=== PATIENT | female | born 1995 | race Caucasian/White ===

== ENCOUNTER 2024-05-07 09:21 | Emergency (ER) | payer OTHER, SELFPAY ==
--- NOTE | 2024-05-07 09:31 | ED_ITS ---
HPI - Female Genitourinary General Chief complaint: Nausea/Vomiting/Diarrhea Stated complaint: Urinary Problem,Diarrhea Time Seen by Provider: 05/07/24 09:47 Source: patient and RN notes reviewed Mode of arrival: ambulatory Limitations: no limitations History of Present Illness HPI Narrative: 28-year-old female presents with concern for 6 day history of diarrhea. She reports she is having some nausea and has vomited about 3 times in the past week. She denies fevers. She denies abdominal pain. She reports she has been having difficulty passing urine and has to ?force? urine out. She denies dysuria, frequency, urgency. She reports she is urinating and normal volume. She reports she is drinking fluids and is eating chicken soup. MD elicited complaint: UTI and other (Diarrhea) Related Data Allergies Allergy/AdvReac Type Severity Reaction Status Date / Time ketorolac (From Toradol) Allergy Unknown Unknown Verified 05/07/24 09:34 Review of Systems Review of Systems: CONSTITUTIONAL: Denies malaise, chills, sweats, or fever. ENT: Denies rhinorrhea, congestion, sinus pain, otalgia or sore throat. CARDIOVASCULAR: Denies chest pain, palpitations, or edema. RESPIRATORY: Denies cough or dyspnea. GASTROINTESTINAL: Denies abdominal pain, vomiting, bloody, or mucous stools. She reports nausea and diarrhea GENITOURINARY: Denies dysuria, frequency, urgency, or hematuria. Reports difficulty passing urine MUSCULOSKELETAL: Denies myalgia. Reports low back pain NEUROLOGIC: Denies headache. All systems reviewed & are unremarkable except as noted in HPI and below PMFSH Comments At time of signature, agree with nursing past medical, surgical, social and family history. There is no relevant family history pertinent to the presenting complaint Exam Narrative: GENERAL: Well-appearing, well-nourished, and in no acute distress. HEAD: Normocephalic, atraumatic. EYES: PERRLA, conjunctivae clear, and EOMI. ENT: Nares clear, turbinates pink, no rhinorrhea or epistaxis. Mucous membranes moist. Oropharynx without edema, erythema, or lesions. Tonsils not enlarged and without exudate. NECK: Supple. No lymphadenopathy CHEST: Speaks in full sentences. No respiratory distress. HEART: Regular rate and rhythm. SKIN: Warm, dry, no rash. NEURO: Alert and oriented x3. PSYCH: Normal mood and affect Course Course Emergency Course: Patient is aware of diagnosis, understands and agrees to treatment plan. Anticipatory guidance given. Patient agrees to follow-up as directed and is aware of reasons to seek care at the emergency department. Portions of this record may have been created with voice recognition software Level of Care: Express Care Visit Vital Signs Vital signs: Reviewed. MDM - Female Genitourinary MDM Narrative Medical decision making narrative: I evaluated this patient in the express care. History is obtained from patient who is an independent historian and physical exam was performed.? Available medical records were reviewed. ? Exam findings and relevant testing show no acute concerns or changes; patient is non-toxic appearing and is in no distress. ? Differential diagnosis and treatment plan were discussed with the patient. Patient agrees with discussion and after shared medical decision making agrees with plan of care. All questions were answered to the patient's satisfaction. Patient is appropriate for outpatient treatment and follow-up. Critical Care Time Critical Care Time Critical Care Time: No Discharge Plan Discharge Clinical Impression: Diarrhea Patient Disposition: Home, Self-Care Condition: Stable Instructions: Acute Diarrhea (ED) Additional Instructions: We will send a urine culture to the lab; if the culture identifies an organism that requires antibiotic, you will receive a phone call from an urgent care staf f member and an appropriate antibiotic will be prescribed. Take Zofran as needed for nausea to lie did tolerate food and fluids Take probiotic as directed Increase water intake. Take ibuprofen as needed for pain and inflammation Follow-up with your primary care provider if symptoms do not improve. Seek ER visit if condition worsens and does not allow you to tolerate fluids, you have high fever, nausea, vomiting and severe back pain. Patient Language: Polish Prescriptions: New ondansetron 4 mg tablet,disintegrating 4 mg PO Q8H PRN (Reason: nausea and vomiting) Qty: 10 0RF Culturelle 10 billion cell capsule 1 cap PO DAILY Qty: 30 0RF Follow-up/Referrals: Claudio,Mikey Treviño MD [Primary Care Provider] - Stand Alone Forms: Work/School Release IP Time of Disposition: 09:55
[2024-05-07 09:33] VITALS: BP 133/78; PULSE 90; RESP 18; TEMP 36.4; O2SAT 100
[2024-05-07 09:42] LABS: EDUAAPPEAR Cloudy; EDUABILI Negative (Negative); EDUABLOOD Negative (Negative); EDUACOLOR1 Yellow; EDUAGLUCOSE Negative (Negative); EDUAKETONE Negative (Negative); EDUALEUKO Negative (Negative); EDUANITRATE Negative (Negative); EDUAPROTEIN Trace (Negative); EDUASPGRAVITY 1.025; EDUAUROBILI 0.2
== END 2024-05-07 10:01 | disposition home or self-care (01) ==
PROVIDERS: Emergency Provider Nurse Practitioner; PCP Family Medicine
DX: R19.7 Diarrhea, unspecified (principal)
CPT/HCPCS: 81003; 87086; 99203; G0463

== ENCOUNTER 2024-07-27 11:00 | Emergency (ER) | payer OTHER, SELFPAY ==
--- NOTE | ~2024-07-27 | XR_ITS ---
EXAMINATION: XR chest 2V DATE: 07/27/2024 11:39 INDICATION: Burning in chest TECHNIQUE: frontal and lateral views of the chest were obtained. COMPARISON: None FINDINGS: The lungs are clear with no focal airspace opacities, pulmonary edema, pleural effusion or pneumothor ax. The cardiomediastinal silhouette is normal. Mild thoracic kyphosis with mild anterior wedging of a few mid thoracic vertebral bodies and mild spondylosis. IMPRESSION: 1. No acute cardiopulmonary disease. Reviewed, dictated and finalized at location A.
--- OUTSIDE RECORDS SUMMARY | 2024-07-27 11:04 | XMS_ITS | Encounter Summary ---
Author Organization [facility] Healthcare Address [address] [place] [address] Care Team Providers Care Dobby Loom Chain Pegger Name Role Phone Mikey Snyder MD Primary Care Provider [phone] Reason for Visit * Auth/Cert (Routine) Specialty Diagnoses / Procedures Referred By Contac t Referred To Contact Diagnoses Dysphagia, unspecified type Dysphagia, unspecified type [R13.10] Procedures IA ESOPHAGOGASTRODUODENOSCOPY TRANSORAL DIAGNOSTIC ESOPHAGOGASTRODUODENOSCOPY Referral ID Status Reason Start Date Expiration Date Visits Re quested Visits Authorized [id number] 1 1 Encounter Details Date Type Department Care Team (Late st Contact Info) Description 03/08/2024 Hospital Encounter [facility] [address] [place] [address] Berto Benitez MD [address] [place] [address] [address] Social History Tobacco Use Types Packs/Day Years Used Date Smoking Tobacco: Never Smokeless Tobacco: Never Alcohol Use Standard Drinks/Week Comments No 0 (1 standard drink = 0.6 oz pur e alcohol) AUDIT-C Answer Date Recorded Q1: How often do you have a drink containing alc ohol? Never 10/27/2023 Average Number of Drinks Not on file 024 Frequency of Binge Drinking Not on file 08/2023 Personal Safety Answer Date Recorded Have you ever been in or are you currently in a harmful physical or emotional relationship or is someone making you feel afraid or unsafe? Denies 04/01/2024 Comments No Sex and Gender Information Value Date Recorded Sex Assigned at Not on file Legal Sex Female 6:11 PM SPECIALTY SALES REPRESENTATIVE Gender Identity Not on file Sexual Orientation Not on file documented as of this encounter Plan of Treatment Not on file documented as of this encounter Visit Diagnoses Diagnosis Dysphagia- Primary documented in this encounter Admitting Diagnoses Diagnosis Dysphagia documented in this encounter Care Teams Dobby Loom Chain Pegger Relationship Specialty Start Date End Date Mikey Snyder MD PCP - General 08/18/20 documented as of this encounter
--- OUTSIDE RECORDS SUMMARY | 2024-07-27 11:04 | XMS_ITS | Referral Summary ---
Author Organization [facility] Address [address] [place] [address] Care Team Providers Care Dance Coach Name Role Phone Mikey Snyder MD Primary Care Provider [phone] Allergies Active Allergy Reactions Criticality Noted Date Comments Amoxicillin Vomiting Low 02/06/2017 Pt states she is no longer allergic. 11/15/22 Aspirin Other (See comments) Medium 11/14/2015 Abdominal swelling Silva Nausea Only 07/16/2017 Pt states she is no longer allergic. 11/15/22 Codeine Vomiting Low 02/06/2017 Divalproex Seizures High 07/31/2017 Ibuprofen Swelling Medium 01/22/2018 Raspberry Anaphylaxis High 07/09/2023 Ketorolac Vomiting Low 03/08/2018 Tramadol Hives Medium 11/14/2015 Medications albuterol HFA (Ventolin HFA) 90 mcg/actuation inhalerIndications :Upper respiratory tract infection, unspecified type Inhale 2 puffs every 4 (four) hours as needed for wheezing or shortness of breath 8 g 5 12/17/19 20 Active busPIRone (BUSPAR) 5 mg tabletIndications: Generalized Anxiety Disorder Take 1 tablet (5 mg total) by mouth as needed Active levonorgestreL (MIRENA) IUD 07/20/19 22 Active cyclobenzaprine (FLEXERIL) 10 mg tablet Take 1 tablet (10 mg total) by mouth 2 (two) times a day as needed for muscle spasms 15 tablet 11/06/19 22 Active Additional Information Patient not taking.Reported on 06/20/2022 clindamycin (CLEOCIN) 300 mg capsule Take 1 capsule (300 mg total) by mouth 3 (three) times a day 30 capsule 01/17/20 22 Active Additional Information Patient not taking.Reported on 06/20/2022 ondansetron (ZOFRAN) 4 mg tablet Take 1 tablet (4 mg total) by mouth every 6 (six) hours 12 tablet 05/08/19 23 Active Additional Information Patient not taking.Reported on 06/20/2022 dicyclomine (BENTYL) 20 mg tablet Take 1 tablet (20 mg total) by mouth 2 (two) times a day 20 tablet 05/08/19 23 Active Additional Information Patient not taking.Reported on 06/20/2022 ergocalciferol (VITAMIN D) 50,000 unit capsule Take 50,000 Units by mouth 06/07/19 23 Active ondansetron ODT (ZOFRAN-ODT) 4 mg disintegrating tablet Take 1 tablet (4 mg total) by mouth every 8 (eight) hours as needed for nausea or vomiting 20 tablet 10/25/19 23 Active Additional Information Patient not taking.Reported on 10/27/2023 lidocaine (LIDODERM) 5 % Place 1 patch on the skin daily for 14 days Remove & discard patch within 12 hours or as directed by MD. 14 patch 02/15/20 Active methocarbamoL (ROBAXIN) 500 mg tablet Take 1 tablet (500 mg total) by mouth 2 (two) times a day 20 tablet 02/15/20 Active Additional Information Patient not taking.Reported on 10/27/2023 HYDROcodone-acetam inophen (NORCO) 5-325 mg per tabletIndications: Pain Take 1 tablet by mouth every 6 (six) hours as needed for pain 12 tablet 07/09/19 24 Active Additional Information Patient not taking.Reported on 10/27/2023 cephalexin (KEFLEX) 500 mg capsule Take 1 capsule (500 mg total) by mouth 3 (three) times a day 21 capsule 07/09/19 24 Active Additional Information Patient not taking.Reported on 10/27/2023 budesonide (PULMICORT) 1 mg/2 mL nebulizer solutionIndication s:Eosinophilic Esophagitis Mix the content of 1 ampul with 10 g of Splenda and swallow. Do not eat or drink for 30 minutes afterwards. 60 mL 3 11/24/19 24 Active omeprazole (PriLOSEC) 40 mg capsule Take 1 capsule (40 mg total) by mouth daily 90 capsule 1 11/24/19 24 Active cyclobenzaprine (FLEXERIL) 10 mg tablet Take 1 tablet (10 mg total) by mouth 2 (two) times a day as needed for muscle spasms 20 tablet 04/01/20 24 Active HYDROcodone-acetam inophen (NORCO) 5-325 mg per tabletIndications: Pain Take 1 tablet by mouth every 6 (six) hours as needed for pain for up to 10 doses 10 tablet 04/01/20 24 Active ondansetron (ZOFRAN) 4 mg tablet Take 1 tablet (4 mg total) by mouth every 4 (four) hours as needed for nausea or vomiting 15 tablet 04/01/20 24 Active Active Problems Problem Noted Date Diagnosed Date Epigastric burning sensation 10/28/2023 Assessment & Plan (10/28/2023 3:04 PM CDT): Epigastric burning and fluttering sensation, worse with fasting Went to ED two weeks ago was told from GERD Been on pantoprazole daily for 2 weeks with no relief but tolerating without side effects Takes NSAIDs twice a month Mother and father with GERD No smoking, very occasional ETOH use, previous heavy drinker from -. Last EGD from 10/2022 showed findings suggestive of EoE, did not tolerated PPI due to migraine and started on fluticasone, tried for 3-4 months with no relief. Still having persistent solid food dysphagia, no food regurgitation, nausea or vomiting Recent CT from 09/2023 showed hepatic steatosis and mild hepatomegaly Plan Increase pantoprazole to 40 mg BID, take 30 minute before breakfast and dinner Schedule EGD to assess for esophagitis, PUD, gastritis Dysphagia 10/27/2023 Assessment & Plan (10/28/2023 3:02 PM CDT): Last EGD from 10/2022 showed findings suggestive of EoE, did not tolerated PPI due to migraine and started on fluticasone, tried for 3-4 months with no relief. Still having persistent solid food dysphagia, no food regurgitation, nausea or vomiting Plan Will schedule EGD with bx and dilation Increase pantoprazole to 40 mg BID, take 30 minute before breakfast and dinner Diarrhea 10/27/2023 Assessment & Plan (10/28/2023 3:02 PM CDT): Has non-bloody watery loose stool with urgency following eating, worsening over the last 5 years, tried cutting out greasy fatty foods with some relief, no nocturnal symptoms No hematochezia or melena Lost about 10 lbs over the last 2 weeks mostly with diet changes No prior colonoscopy or diarrhea work up Recent CT from 09/2023 showed hepatic steatosis and mild hepatomegaly Plan Clinically sounds like IBS-D Schedule colonoscopy given weight loss and chronically worsening symptoms, depending on findings will decide if additional diarrhea work up indicated. Esophageal candidiasis 08/16/2022 Otorrhea of left ear 02/19/2021 Assessment & Plan (02/19/2021 2:16 PM CDT): Tobradex to the Left ear 7 drops twice daily for 14 days Avoid ear cleaning techniques Avoid water to ears Referral to Otology for Chronic tympanomastoiditis bilaterally How to Use Ear Drops discussed and Handout provided Chronic tympanomastoiditis of both sides 021 Assessment & Plan (02/19/2021 2:17 PM CDT): Referral to Otology for Chronic tympanomastoiditis bilaterally Acute viral syndrome 12/04/2020 Migraine without status migrainosus, not intract able 09/15/2020 Assessment & Plan (09/15/2020 1:43 PM CDT): Referral to Neurology for Migraines Sprain of deltoid ligament of left ankle 021 Foot sprain, left, initial encounter 07/10/2020 Otorrhea of right ear 01/30/2020 Assessment & Plan (09/15/2020 1:42 PM CDT): CT Temporal Bone - call with results Avoid ear cleaning techniques Avoid water to ears Assessment & Plan (09/01/2020 8:46 AM CDT): Increase Ciprodex to 10 drops into the Right ear twice daily Stop Augmentin and start Doxycycline Follow up in two weeks Consider CT Temporal bone once drainage had improved Tubes placed in January 2020 Consider ear culture and switch to Tobradex Assessment & Plan (02/13/2020 2:44 PM CDT): Finish remaining bottle of ear drops in both ears Consider Tobramycin drops Avoid ear cleaning techniques Avoid water to ears Cetirizine (Zyrtec) 10 mg daily for itching Follow up in 6 months, earlier with ear drainage Assessment & Plan (01/30/2020 9:56 AM CDT): Ciprofloxacin ear drops 7 drops into each ear twice daily for 7 days Avoid ear cleaning techniques Avoid water to ears How to Use Ear Drops discussed and Handout provided Chronic otitis media of both ears with effusion 01/08/2020 Assessment & Plan (01/08/2020 4:06 PM CDT): Bilateral myringotomy with T-tube placement in the OR Risks and complications discussed including anesthesia, bleeding, infection, hearing loss, ear tubes may fall out early, fall inwards, stay in longer than a few years, get clogged, fall out and leave a hole in the ear drum that would need to be patched, drain clear fluid. Bilateral hearing loss 01/08/2020 Assessment & Plan (01/08/2020 4:06 PM CDT): Bilateral myringotomy with T-tube placement in the OR Risks and complications discussed including anesthesia, bleeding, infection, hearing loss, ear tubes may fall out early, fall inwards, stay in longer than a few years, get clogged, fall out and leave a hole in the ear drum that would need to be patched, drain clear fluid. Chronic otitis media with effusion, bilateral Overview (01/08/2020): Added automatically from request for surgery [id number] Assessment & Plan (01/29/2020 3:56 PM CDT): Ciprofloxacin ear drops 7 drops into each ear twice daily for 7 days Ear drops discussed and Handout provided Acute right otitis media 03/20/2019 Acute serous otitis media of left ear 03/20/2019 Acute maxillary sinusitis 03/20/2019 Preeclampsia in period 08/10/2017 Immunizations Immunization Administration Dates Next Due Influenza, Trivalent, Preservative Free, Intramu scular 04/01/2024 MMR 08/04/2017 Social History Tobacco Use Types Packs/Day Years Used Date Smoking Tobacco: Never Smokeless Tobacco: Never Tobacco Cessation:Counseling Given: Not Answered Alcohol Use Standard Drinks/Week Comments No 0 [...] on file Legal Sex Female 6:11 PM AGRONOMIST Gender Identity Not on file Sexual Orientation Not on file Last Filed Vital Signs Vital Sign Reading Time Taken Comments Blood Pressure 135/83 04/01/2024 9:02 AM AGRONOMIST Pulse 81 04/01/2024 9:02 AM AGRONOMIST Temperature 37 C (98.6 F) 04/01/2024 9:02 AM AGRONOMIST Respiratory Rate 16 04/01/2024 9:02 AM AGRONOMIST Oxygen Saturation 100% 04/01/2024 9:02 AM AGRONOMIST Inhaled Oxygen Concentration - - Weight 117.9 kg (260 lb) 04/01/2024 9:02 AM AGRONOMIST Height 157.5 cm (5' 2 ) 04/01/2024 9:02 AM AGRONOMIST Body Mass Index 47.55 04/01/2024 9:02 AM AGRONOMIST Plan of Treatment Not on file Medical Devices Implanted Type Area Collaborative Teacher Device Identifier Shelf Expiration Date Model / Serial / Lot [employer] [id number] 1.32mm 4.8mm Modify Ear T Tube Ventilation Ultrasil Sterile Blue - [id number] Implanted:Qty: 1 on 01/23/2020 by Johanna Almaguer DO at [facility] Bilateral: Tympanic Membrane [employer] 03/10/2029 [id number] / / [id number] Insurance [facility] Advance Directives For more information, please contact: [phone] * Full Code (Latest Code Status on File) Date Activated Date Inactivated Comments 11/24/2023 11:57 AM 11/24/2023 6:47 PM * Full Code Date Activated Date Inactivated Comments 11/24/2023 11:57 AM 11/24/2023 11:57 AM * Full Code Date Activated Date Inactivated Comments 11/16/2022 8:07 AM 11/16/2022 3:29 PM * Full Code Date Activated Date Inactivated Comments 11/16/2022 8:07 AM 11/16/2022 8:07 AM * Full Code Date Activated Date Inactivated Comments 08/10/2022 11:32 AM 08/10/2022 5:23 PM Care Teams Dance Coach Relationship Specialty Start Date End Date Mikey Snyder MD PCP - General 08/18/20
--- OUTSIDE RECORDS SUMMARY | 2024-07-27 11:04 | XMS_ITS | Clinical Summary ---
Author Organization [facility] Address [address] [place] [address] Care Team Providers Care Senior Field Service Engineer Name Role Phone Mikey Snyder MD Primary Care Provider [phone] Allergies Active Allergy Reactions Criticality Noted Date [...] (01/08/2020): Added automatically from request for surgery [id number] Assessment & Plan (01/29/2020 3:56 PM CDT): Ciprofloxacin ear drops 7 drops into each ear twice daily for 7 days Ear drops discussed and Handout provided Acute right otitis media 03/20/2019 Acute serous otitis media of left ear 03/20/2019 Acute maxillary sinusitis 03/20/2019 Preeclampsia in period 08/10/2017 Immunizations Immunization Administration Dates Next Due Influenza, Trivalent, Preservative Free, Intramu scular 04/01/2024 MMR 08/04/2017 Surgical History Surgery Date Site/Laterality Comments TONSILLECTOMY AND ADENOIDECTOMY 04/24/1998 - 04/23/1999 Bilateral MYRINGOTOMY W/ TUBES 04/24/1998 - 04/23/1999 Pt. states shes had myringotomy tubes throughout her life. Her most recent procedure was in 2019. Medical History Medical History Date Comments Depression Migraine Polycystic ovary syndrome Urinary tract infection Migraine 01/11/2017 Asthma Migraine Migraine Anxiety GERD (gastroesophageal reflux disease) Seizures (HCC) last seizure 6 m o ago Hypertension Dysphagia Family History Medical History Relation Name Comments Cancer Father Hypertension Father Epilepsy Mother Blood Clot Other Cancer Other Heart disease Other Kidney disease Other Seizures Other Stroke Other Relation Name Status Comments Father Mother Alive Other Social History Tobacco Use Types Packs/Day Years [...] on file Legal Sex Female 6:11 PM COOKIE BREAKER Gender Identity Not on file Sexual Orientation Not on file Obstetrics History Para Term AB IAB SAB Ectopic Multiple Livin g Live Births 4 1 1 2 2 0 1 1 Date Outcome GA Total Labor Labor/2nd/3rd Weight Sex Type Anes PTL Bonnie A1 A5 Name Clin 2010 SAB 2014 SAB 2017 Term 39w 0d 14h 09m 13h 04m/0h 52m/0h 13m 3.887 kg (8 lb 9.1 oz) M Vag-S pont Epidur al N Livin g 2 5 [facility]KINS Sonia Marie, MD Complications: Renata lewis Hypertension Delivery Location:This Fac[facility] ([facility]) Last Filed Vital Signs Vital Sign Reading Time Taken Comments Blood Pressure 135/83 04/01/2024 9:02 AM COOKIE BREAKER Pulse 81 04/01/2024 9:02 AM COOKIE BREAKER Temperature 37 C (98.6 F) 04/01/2024 9:02 AM COOKIE BREAKER Respiratory Rate 16 04/01/2024 9:02 AM COOKIE BREAKER Oxygen Saturation 100% 04/01/2024 9:02 AM COOKIE BREAKER Inhaled Oxygen Concentration - - Weight 117.9 kg (260 lb) 04/01/2024 9:02 AM COOKIE BREAKER Height 157.5 cm (5' 2 ) 04/01/2024 9:02 AM COOKIE BREAKER Body Mass Index 47.55 04/01/2024 9:02 AM COOKIE BREAKER Plan of Treatment Health Maintenance Due Date Last Done Comments Cervical Cancer Screening 1993 Depression Screening 1993 Hepatitis C Screening 1993 Varicella Vaccines (2 of 2 - 2-dose childhood series) 12/21/1998 09/28/1998 Regular Well Visit/Exam 18-64 10/18/2011 Pneumococcal vaccine <65 (2 of 2 - PCV) 09/02/2015 09/01/2014 DTaP/Tdap/Td Vaccine (8 - Td or Tdap) 05/10/2027 05/10/2017, 06/16/2009, 01/28/1998, Additional history exists Hepatitis B Screening Completed 08/16/1994 , 1993, 1993 HPV Vaccines Completed 01/11/2010, 07/24, 06/16/2009 Influenza Vaccine Completed 04/01/2024, , 03/01/2019, Additional history exists Medical Devices Implanted Type Area Bicycle Service Technician Device Identifier Shelf Expiration Date Model / Serial / Lot [employer] [id number] 1.32mm 4.8mm Modify Ear T Tube Ventilation Ultrasil Sterile Blue - [id number] Implanted:Qty: 1 on 01/23/2020 by Johanna Almaguer DO at [facility] Bilateral: Tympanic Membrane [employer] 03/10/2029 [id number] / / [id number] Insurance [facility] Advance Directives For more information, please contact: [phone] * Full Code (Latest Code Status on [...] 11:32 AM 08/10/2022 5:23 PM Care Teams Senior Field Service Engineer Relationship Specialty Start Date End Date Mikey Snyder MD PCP - General 08/18/20
[2024-07-27 11:10] VITALS: BP 128/67; PULSE 74; RESP 20; TEMP 36.6; O2SAT 99
--- NOTE | 2024-07-27 11:28 | ED.GENADULT ---
HPI - General Adult General Chief complaint: Upper Respiratory Infection Stated complaint: Swollen Throat, Hurts to Breathe Source: patient Mode of arrival: ambulatory Limitations: no limitations History of Present Illness HPI narrative: Patient presents for evaluation of throat tightness. Symptom onset yesterday. She denies sore throat per se. She feels some pressure in her ears. Today she woke from sleep with a burning sensation in her chest. She has an occasional cough. Denies shortness of breath. She reports nausea without vomiting. One of her family members had influenza A a few weeks ago. Related Data Allergies Allergy/AdvReac Type Severity Reaction Status Date / Time aspirin Allergy Unknown Unknown Verified 07/27/24 11:13 codeine Allergy Unknown Unknown Verified 07/27/24 11:13 ketorolac (From Toradol) Allergy Unknown Unknown Verified 05/07/24 09:34 Review of Systems Review of Systems: CONSTITUTIONAL: Denies fever, chills, or sweats. EYES: Denies visual changes, redness, or discharge. ENT: Reports throat tightness. Denies sore throat per se Denies rhinorrhea, congestion, or otalgia. CARDIOVASCULAR: Denies chest pain, palpitations, or edema. RESPIRATORY: Reports burning sensation in the chest with mild cough. Denies shortness of breath GASTROINTESTINAL:Reports nausea without vomiting. Denies abdominal pain or diarrhea. GENITOURINARY: Denies dysuria or hematuria. SKIN: Denies rash or itching. MUSCULOSKELETAL: Denies back pain, joint pain, or myalgia. NEUROLOGIC: Denies headache, numbness, dizziness, or weakness. PSYCHIATRIC: Denies anxiety or depression. [facility] Past Medical History Medical History No pertinent past medical history Surgical History Surgical History History of tonsillectomy Family History Family History Mother Family history non-contributory Social History Social History Smoking status: Never smoker Living arrangements: with family Gender identity (if verbalized by the patient): Female Exam Narrative: GENERAL: Well-appearing, well-nourished, and in no acute distress. HEAD: Normocephalic, atraumatic. EYES: PERRLA and EOMI. ENT: Nares clear, no rhinorrhea or epistaxis. Mucous membranes moist. Oropharynx without tonsillar hypertrophy exudate or other lesions. Bilateral TMs pearly mcgee nonbulging NECK: Supple. No adenopathy or masses. No carotid bruits or JVD CHEST: Clear to auscultation. No respiratory distress. No wheezes rales or rhonchi HEART: Regular rate and rhythm. No murmur heard. Normal peripheral pulses. ABDOMEN: Soft, nontender, nondistended, normal active bowel sounds. EXTREMITIES: Normal range of motion. No edema. SKIN: Warm, dry, no rash. NEURO: No focal deficits. Alert and oriented x3. PSYCH: Normal mood and affect. Course Course Emergency Course: This is a 28-year-old female presented for evaluation of this tight sensation in her throat and burning in her chest. Strep, COVID, influenza were all negative. Chest x-ray negative. Exam consistent with acute viral syndrome. Advised on supportive care measures. Cepacol and ibuprofen should help her symptoms. Follow-up with primary provider. Go to the ER for worsening symptoms. Patient in agreement with plan of care. Level of Care: Express Care Visit Vital Signs Vital signs: Vital Signs Temperature 36.6 C 07/27/24 11:10 Pulse Rate 74 07/27/24 11:10 Respiratory Rate 20 07/27/24 11:10 Blood Pressure 128/67 07/27/24 11:10 Pulse Oximetry 99 07/27/24 11:10 Oxygen Delivery Room Air 07/27/24 11:10 Temperature 36.6 C 07/27/24 11:10 Pulse Rate 74 07/27/24 11:10 Respiratory Rate 20 07/27/24 11:10 Blood Pressure 128/67 07/27/24 11:10 Pulse Oximetry 99 07/27/24 11:10 Oxygen Delivery Room Air 07/27/24 11:10 Medical Decision Making Vital Signs Vital Signs: Vital Signs Temperature 36.6 C 07/27/24 11:10 Pulse Rate 74 07/27/24 11:10 Respiratory Rate 20 07/27/24 11:10 Blood Pressure 128/67 07/27/24 11:10 Pulse Oximetry 99 04/05/25 11:10 Oxygen Delivery Room Air 07/27/24 11:10 Temperature 36.6 C 07/27/24 11:10 Pulse Rate 74 07/27/24 11:10 Respiratory Rate 20 07/27/24 11:10 Blood Pressure 128/67 07/27/24 11:10 Pulse Oximetry 99 07/27/24 11:10 Oxygen Delivery Room Air 07/27/24 11:10 Lab Data Labs: Lab Results 07/27/24 07/27/24 Range/Units 11:14 11:30 POC Influenza A Ag Negative (Negative) POC Influenza B Ag Negative (Negative) POC SARS CoV-2 Ag Negative (Negative) POC Grp A Strep Screen Negative (Negative) Imaging Data Radiologist's impression: EXAMINATION: XR chest 2V DATE: 07/27/2024 11:39 INDICATION: Burning in chest TECHNIQUE: frontal and lateral views of the chest were obtained. COMPARISON: None FINDINGS: The lungs are clear with no focal airspace opacities, pulmonary edema, pleural effusion or pneumothorax. The cardiomediastinal silhouette is normal. Mild thoracic kyphosis with mild anterior wedging of a few mid thoracic vertebral bodies and mild spondylosis. IMPRESSION: 1. No acute cardiopulmonary disease. Discharge Plan Discharge Clinical Impression: Acute viral syndrome Patient Disposition: Home, Self-Care Condition: Stable Instructions: Antibiotic Form, Viral Syndrome (ED) Additional Instructions: IBUPROFEN AND CEPACOL LOZENGES MAY HELP YOUR SYMPTOMS Patient Language: Syriac Follow-up/Referrals: Claudio,Mikey Treviño MD [Primary Care Provider] - Stand Alone Forms: Work/School Release IP Time of Disposition: 12:16
[2024-07-27 11:29] LABS: EDSTREPNEGPOS1 Negative (Negative)
[2024-07-27 11:46] LABS: EDCOVIDSCREEN Negative (Negative); EDINFLUASCREEN Negative (Negative); EDINFLUBSCREEN Negative (Negative)
== END 2024-07-27 12:23 | disposition home or self-care (01) ==
PROVIDERS: Emergency Provider Nurse Practitioner; PCP Family Medicine
DX: B34.9 Viral infection, unspecified (principal); Z20.822 Contact with and (suspected) exposure to COVID-19
CPT/HCPCS: 71046; 87081; 87426; 87804; 87880; 99213; G0463

== ENCOUNTER 2024-09-17 12:19 | Emergency (ER) | payer OTHER, SELFPAY ==
--- NOTE | 2024-09-17 12:39 | ED.FEMALEGU ---
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 She reports she used her son's Axe body wash last night and this has caused her to have a yeast infection. Denies any vaginal odor. Has had yeast infections before and have felt similar. Denies any history of bacterial vaginosis. States that the discharge is white, thick, and causing itchiness. Has itchiness to the external vulva and to the internal vaginal area. No fevers, chills, body aches, back pain, or UTI symptoms. No concern for sexually transmitted infections. Last menstrual period was 2 weeks ago. No concern for . Related Data Allergies Allergy/AdvReac Type Severity Reaction Status Date / Time aspirin Allergy Unknown Unknown Verified 09/17/24 12:45 codeine Allergy Unknown Unknown Verified 09/17/24 12:45 ketorolac (From Toradol) Allergy Unknown Unknown Verified 09/17/24 12:45 tramadol Allergy Unknown Unknown Verified 09/17/24 12:45 Review of Systems Review of Systems: Pertinent positives per HPI. Patient denies any fever, chills, rash, headache, visual changes, dizziness, cough, runny nose, sore throat, shortness of breath, chest pain, palpitations, nausea, vomiting, diarrhea, constipation, abdominal pain, or any urinary issues. PMFSH Past Medical History Medical History No pertinent past medical history Surgical History Surgical History History of tonsillectomy Family History Family History Mother Family history non-contributory Social History Social History Smoking status: Never smoker Living arrangements: with family Gender identity (if verbalized by the patient): Female Comments At the time of my signature, I reviewed and agree with the nursing past medical, surgical, social, and family history. There is no relevant family history pertinent to the patient complaint. Exam Narrative: General: Well-developed, morbidly obese, in no apparent distress Head: Normocephalic, atraumatic. Cardio: Regular rate and rhythm, s1 and s2 normal, no murmur appreciated. Resp: Clear to auscultation bilaterally, no rhonchi, rales, wheezing or rubs. Abdomen: Soft, pliable, bowel sounds present in all quadrants, non-tender to palpation, no CVAT tenderness. : Deferred Course Course Emergency Course: Portions of this record may have been created with voice recognition software. Level of Care: Express Care Visit Vital Signs Vital signs: Vital signs reviewed MDM - Female Genitourinary MDM Narrative Medical decision making narrative: At the time of visit patient is resting comfortably on the exam table. Patient appears to be nontoxic. Plan: I suspect patient has a vaginal yeast infection. Prescription for Diflucan was sent to the pharmacy. Supportive measures were discussed with the patient and they voiced understanding discharge instructions and agrees to treatment plan. Return precautions reviewed Differential Diagnosis Differential diagnosis: Likely bacterial vaginosis, trichomoniasis, cervicitis, vaginitis and other (Vaginal yeast infection, STIs) Discharge Plan Discharge Clinical Impression: Vaginal yeast infection Patient Disposition: Home Condition: Stable Instructions: Antibiotic Form, Yeast Infection (ED) Additional Instructions: Take Diflucan as prescribed Avoid using scented soaps in the genital area May take Tylenol/Motrin as needed for pain or fever Follow-up with your OBGYN as needed Patient Language: Lithuanian Prescriptions: New fluconazole 150 mg tablet 150 mg PO ONCE Qty: 2 0RF Rx Instructions: as a single dose. May repeat in 72 hours if needed. Follow-up/Referrals: Claudio,Mikey Treviño MD [Primary Care Provider] - Time of Disposition: 12:50 Quality NIHSS Nursing Documentation ED NIHSS nursing documentation: reviewed/agree
[2024-09-17 12:40] VITALS: BP 135/71; PULSE 74; RESP 16; TEMP 36.6; O2SAT 99
--- OUTSIDE RECORDS SUMMARY | 2024-09-17 12:40 | XMS_ITS | Encounter Summary ---
Author Organization [facility] Address [address] [place] [address] Care Team Providers Care Teletray Operator Name Role Phone Mikey Snyder MD Primary Care Provider [phone] Reason for Visit * Auth/Cert (Routine) Specialty Diagnoses / Procedures Referred By Contac t Referred To Contact Diagnoses Dysphagia, unspecified type Dysphagia, unspecified type [R13.10] Procedures OK ESOPHAGOGASTRODUODENOSCOPY TRANSORAL DIAGNOSTIC ESOPHAGOGASTRODUODENOSCOPY Referral ID Status Reason Start Date Expiration Date Visits Re quested Visits Authorized [id number] 1 1 Encounter Details Date Type Department Care Team (Late st Contact Info) Description 03/08/2024 Hospital Encounter [facility] [address] [place] [address] Berto Benitez MD [address] [place] [address] [address] Social History Tobacco Use Types Packs/Day Years [...] making you feel afraid or unsafe? 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
--- OUTSIDE RECORDS SUMMARY | 2024-09-17 12:40 | XMS_ITS | Referral Summary ---
Author Organization [facility] Address [address] [place] [address] Care Team Providers Care Supervisor Jewelry Department Name Role Phone Mikey Snyder MD Primary Care Provider [phone] Encounters Date Type Department Care Team Description 08/13/2024 5:06 AM CDT - 08/13/2024 10:59 AM CDT Emergency [facility] Department [address] [place] [address] Mei Payan MD Cystitis (Primary Dx) Discharge Disposition: Discharge to home or self care from Last 3 Months Allergies Active Allergy Reactions Criticality Noted Date [...] as needed Active levonorgestreL (MIRENA) IUD 07/20/19 Active cyclobenzaprine (FLEXERIL) 10 mg tablet Take [...] (two) times a day 20 tablet 05/08/19 Active Additional Information Patient not taking.Reported on 06/20/2022 ergocalciferol (VITAMIN D) 50,000 unit capsule Take 50,000 Units by mouth 06/07/19 23 Active ondansetron ODT (ZOFRAN-ODT) 4 mg disintegrating tablet Take 1 tablet (4 mg total) by mouth every 8 (eight) hours as needed for nausea or vomiting 20 tablet 10/25/19 Active Additional Information Patient not taking.Reported on 10/27/2023 lidocaine (LIDODERM) 5 % Place 1 patch on the skin daily for 14 days Remove & discard patch within 12 hours or as directed by MD. 14 patch 02/15/20 Active methocarbamoL (ROBAXIN) 500 mg tablet Take 1 tablet (500 mg total) by mouth 2 (two) times a day 20 tablet 02/15/20 23 Active Additional Information Patient not taking.Reported [...] Handout provided Chronic tympanomastoiditis of both sides Assessment & Plan (02/19/2021 2:17 PM CDT): Referral to Otology for Chronic tympanomastoiditis bilaterally Acute viral syndrome 12/04/2020 Migraine without status migrainosus, not intract able 09/15/2020 Assessment & Plan (09/15/2020 1:43 PM CDT): Referral to Neurology for Migraines Sprain of deltoid ligament of left ankle Foot sprain, left, initial encounter 07/10/2020 Otorrhea [...] (01/08/2020): Added automatically from request for surgery [id number] Assessment & Plan (01/29/2020 3:56 PM CDT): [...] on file 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 Gender Identity Not on file Sexual Orientation Not on file Last Filed Vital Signs Vital Sign Reading Time Taken Comments Blood Pressure 127/65 08/13/2024 9:30 AM CDT Pulse 83 08/13/2024 9:42 AM CDT Temperature 37.1 C (98.7 F) 08/13/2024 5:05 AM CDT Respiratory Rate 18 08/13/2024 5:05 AM CDT Oxygen Saturation 97% 08/13/2024 9:42 AM CDT Inhaled Oxygen Concentration - - Weight 120.7 kg (266 lb) 08/13/2024 5:05 AM CDT Height 157.5 cm (5' 2) 04/01/2024 9:02 AM 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 Body Mass Index 48.65 04/01/2024 9:02 AM 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 Plan of Treatment Not on file Medical Devices Implanted Type Area Taxation Accountant Device Identifier Shelf Expiration Date Model / Serial / Lot LYSOGENE [id number] 1.32mm 4.8mm Modify Ear T Tube Ventilation Ultrasil Sterile Blue - [id number] Implanted:Qty: 1 on 01/23/2020 by Johanna Almaguer DO at [facility] Bilateral: Tympanic Membrane LYSOGENE 03/10/2029 [id number] / / [id number] Procedures Procedure Name Priority Date/Time Associated Diagnosis Comments URINALYSIS, MICROSCOPIC ONLY STAT 08/13/2024 8:37 AM CDT DRUGS OF ABUSE SCREEN, URINE WITHOUT CONFIRMATION STAT 08/13/2024 8:37 AM CDT URINE CULTURE STAT 08/13/2024 8:37 AM CDT URINALYSIS AND REFLEX TO MICROSCOPIC AND CULTURE STAT 08/13/2024 8:37 AM CDT from Last 3 Months Results * (ABNORMAL) Urinalysis reflex to microscopic and culture Urine (08/13/2024 8:37 AM CDT) Color, ur Brown Clarity, ur Turbid(A) Clear [facility] ([place]) Specific gravity, ur 1.017 1.003 - 1.030 [facility] ([place]) pH, urine 6.5 [facility] ([place]) Comment: Interpretive Data U rine pH is affected by diet, medications, systemic acid-base disturbances, and renal tubular function. pH may affect urinary stone formation. For example, urine pH below 6.0 may help reduce the tendency for calcium phosphate stones and pH greater than 6.0 may reduce the tendency for uric acid stone formation. Source: [facility] [employer] Current Interpretive Data was last revised on 2017 Protein, ur ql 1+(A) Negative [facility] ([place]) Glucose, ur ql Negative Negative [facility] ([place]) Ketones, ur Negative Negative [facility] ([place]) Bilirubin, ur Negative Negative [facility] ([place]) Blood, ur 3+(A) Negative [facility] ([place]) Urobilinogen, ur <2.0 <2.0 mg/dL [facility] ([place]) Nitrite, ur Negative Negative [facility] ([place]) Leukocyte esterase, ur 3+(A) Negative [facility] ([place]) UA reflex comment Reflex to microscopic UA will be performed. [facility] ([place]) Urine 08/13/2024 8:37 AM CDT 08/13/2024 8:42 AM CDT Mei Payan MD LAB MICROBIOLOGY - GENERA L ORDERABLES Final Result [facility] [address] [facility] Department [place] [address] * (ABNORMAL) Drugs of Abuse Screen, Urine without Confirmation (08/13/2024 8:37 AM CDT) Amphetamine, ur Not Detected CutOff 500ng/mL Comment: Interpretive Data - Amphetamines: Samples containing greater than 500 ng/mL d-methamphetamine or other cross-reacting amphetamine compounds are reported as positive. Amphetamine immunoassays are subject to significant false positive rates due to cross-reactivity of non-amphetamine drugs. Confirmatory testing required for definitive results. Current Interpretive Data was last reviewed 2022. Barbiturates, ur Not Detected CutOff 200ng/mL [facility] ([place]) Comment: Interpretive Data - Barbiturates: Samples containing greater than 200 ng/mL secobarbital or other cross-reacting barbiturate compounds are reported as positive. False positive and false negative results are possible. Confirmatory testing required for definitive results. Current Interpretive Data was last reviewed 2022. Benzodiazepines, ur Not Detected CutOff 100ng/mL [facility] ([place]) Comment: Interpretive Data - Benzodiazepines: Samples containing greater than 100 ng/mL nordiazepam or other cross-reacting compounds are reported as positive. False positive and false negative results are possible. Confirmatory testing required for definitive results. Current Interpretive Data was last reviewed 2022. Cannabinoids, ur Screen Positive, presumptive (A) CutOff 50 ng/mL [facility] ([place]) Comment: Interpretive Data - Cannabinoids: Samples containing greater than 50 ng/mL delta-9 THC -COOH or other cross- reacting compounds are reported as positive. False positive and false negative results are possible. Confirmatory testing required for definitive results. Current Interpretive Data was last reviewed 2022. Cocaine, ur Not Detected CutOff 150ng/mL [facility] ([place]) Comment: Interpretive Data - Cocaine: Samples containing greater than 150 ng/mL benzoylecgonine or other cross- reacting compounds are reported as positive. False positive and false negative results are possible. Confirmatory testing required for definitive results. Current Interpretive Data was last reviewed 2022. Fentanyl, Ur Not Detected CutOff 5 ng/mL [facility] ([place]) Comment: Interpretive Data - Fentanyl: Samples containing greater than 5 ng/mL norfentanyl, fentanyl, or other cross-reacting fentanyl compounds are reported as positive. False positive and false negative results are possible. Confirmatory testing required for definitive results. Current Interpretive Data was last reviewed 2023. Methadone, ur Not Detected CutOff 300ng/mL [facility] ([place]) Comment: Interpretive Data - Methadone: Samples containing greater than 300 ng/mL d,l-methadone or other cross-reacting compounds are reported as positive. False positive and false negative results are possible. Confirmatory testing required for definitive results. Current Interpretive Data was last reviewed 2022. Opiates, ur Not Detected CutOff 300ng/mL [facility] ([place]) Comment: Interpretive Data - Opiates: Samples containing greater than 300 ng/mL morphine or other cross-reacting compounds are reported as positive. False positive and false negative results are possible. Confirmatory testing required for definitive results. Current Interpretive Data was last reviewed 2022. Oxycodone, ur Not Detected CutOff 100ng/mL [facility] ([place]) Comment: Interpretive Data - Oxycodone: Samples containing greater than 100 ng/mL oxycodone or other cross-reacting compounds are reported as positive. False positive and false negative results are possible. Confirmatory testing required for definitive results. Current Interpretive Data was last reviewed 2022. Phencyclidine, ur Not Detected CutOff 25 ng/mL [facility] ([place]) Comment: Interpretive Data - Phencyclidine: Samples containing greater than 25 ng/mL phencyclidine or other cross-reacting compounds are reported as positive. False positive and false negative results are possible. Confirmatory testing required for definitive results. Current Interpretive Data was last reviewed 2022. Urine Creatinine 100 mg/dL NICOLAS MCCORMACK [facility] ([place]) Comment: Interpretive Data Urine Creatinine: < 10 mg/dL is extremely dilute = or > 10 but < 20 mg/dL is dilute = or > 20 mg/dL is normal Current Interpretive Data was last revised on 2017. Urine 08/13/2024 8:37 AM CDT 08/13/2024 8:42 AM CDT Narrative [facility] - 08/13/2024 9:19 AM CDT Drug of Abuse screening is performed by immunoassay for medical purposes only. This is not to be used for Pain Management purposes. Mei Payan MD LAB URINE ORDERABLES Kayleigh l Result Performing Organization Address [facility] Co de Phone Number [facility] [address] [facility] [employer] [place] [address] * (ABNORMAL) Urinalysis, microscopic only (08/13/2024 8:37 AM CDT) WBC, ur >50(A) 0 - 5 /HPF RBC, ur >50(A) 0 - 2 /HPF [facility] ([place] Epithelial cells, squamous, ur 11-20(A) 0 - 5 /HPF [facility] Comment:Suggestive of contam ination. Consider recollection by clean catch. Bacteria, ur 2+(A) [facility] ([place]) Mucous, ur Present(A) [facility] ([place]) Culture Reflex Comment Reflex to urine culture will be performed. [facility] Urine 08/13/2024 8:37 AM CDT 08/13/2024 8:42 AM CDT Mei Payan MD LAB URINE ORDERABLES Kayleigh l Result Performing Organization Address [facility] Co de Phone Number [facility] [address] [facility] [place] [address] * Urine culture Urine (08/13/2024 8:37 AM CDT) Report Final Report: Less than 100,000 colonies/mL (clinically insignificant growth based on current clinical standards) Comment:Testing performed by : [facility], [address] [place]., [address] Organism (CLINICALLY INSIGNIFICANT GROWTH [facility] ([place]) Urine 08/13/2024 8:37 AM CDT 08/13/2024 1:13 PM CDT Narrative [facility] ([place]) - 08/14/2024 2:54 PM CDT Urine culture reflexed based upon urinalysis results. Testing performed by [facility] ([phone]) us Mei Payan MD LAB MICROBIOLOGY - GENERA L ORDERABLES Final Result [facility] ([place]) [address] [facility] Department [place] [address] from Last 3 Months Insurance [facility] Advance Directives For more information, please contact: [phone] * Full Code (Latest Code Status on [...] 11:32 AM 08/10/2022 5:23 PM Care Teams Supervisor Jewelry Department Relationship Specialty Start Date End Date Mikey Snyder MD PCP - General 08/18/20
--- OUTSIDE RECORDS SUMMARY | 2024-09-17 12:40 | XMS_ITS | Clinical Summary ---
Author Organization [facility] Address [address] [place] [address] Care Team Providers Care Assembler Hydraulic Backhoe Name Role Phone Mikey Snyder MD Primary Care Provider [phone] Allergies Active Allergy Reactions Criticality Noted Date [...] (01/08/2020): Added automatically from request for surgery [id number] Assessment & Plan (01/29/2020 3:56 PM CDT): Ciprofloxacin ear drops 7 drops into each ear twice daily for 7 days Ear drops discussed and Handout provided Acute right otitis media 03/20/2019 Acute serous otitis media of left ear 03/20/2019 Acute maxillary sinusitis 03/20/2019 Preeclampsia in period 08/10/2017 Encounters Date Type Department Care Team Description 08/13/2024 5:06 AM CDT - 08/13/2024 10:59 AM CDT Emergency [facility] Emergency Department [address] [place] [address] Mei Payan MD Cystitis (Primary Dx) Discharge Disposition: Discharge to home or self care from Last 3 Months Immunizations Immunization Administration Dates Next Due Influenza, [...] on file Legal Sex Female 6:11 PM PUBLIC POLICY ASSOCIATE Gender Identity Not on file Sexual Orientation [...] al N Livin g 2 5 VINCENT PERKINS, Nikkie Gregory MD Complications: Renata lewis Hypertension Delivery Location:This [...] 157.5 cm (5' 2) 04/01/2024 9:02 AM PUBLIC POLICY ASSOCIATE Body Mass Index 48.65 04/01/2024 9:02 AM PUBLIC POLICY ASSOCIATE Plan of Treatment Health Maintenance Due Date Last Done Comments Cervical Cancer Screening 1993 Depression Screening 1993 Hepatitis C Screening 1993 Varicella Vaccines (2 of 2 - 2-dose childhood series) 12/21/1998 09/28/1998 Regular Well Visit/Exam 18-64 10/18/2011 Pneumococcal vaccine <65 (2 of 2 - PCV) 09/02/2015 09/01/2014 DTaP/Tdap/Td Vaccine (9 - Td or Tdap) 07/09/2034 07/09/2024, 05/10/2017, 06/16/2009, Additional history exists Hepatitis B Screening Completed 08/16/1994 , 1993, 1993 HPV Vaccines Completed 01/11/2010, 07/24, 06/16/2009 Influenza Vaccine Completed 04/01/2024, , 03/01/2019, Additional history exists Medical Devices Implanted Type Area Clinical Assistant Professor Device Identifier Shelf Expiration Date Model / Serial / Lot [employer] [id number] 1.32mm 4.8mm Modify Ear T Tube Ventilation Ultrasil Sterile Blue - [id number] Implanted:Qty: 1 on 01/23/2020 by Johanna Almaguer DO at [facility] Bilateral: Tympanic Membrane [employer] 03/10/2029 [id number] / / [id number] Procedures Procedure Name Priority Date/Time Associated Diagnosis [...] tendency for uric acid stone formation. Source: [facility] Current Interpretive Data was last revised on [...] A ([place]) Leukocyte esterase, ur 3+(A) Negative [facility] ([place]) UA reflex comment Reflex to microscopic UA will be performed. [facility] ([place]) Urine 08/13/2024 8:37 AM CDT 08/13/2024 8:42 AM CDT Mei Payan MD LAB MICROBIOLOGY - GENERA L ORDERABLES Final Result [facility] ([place]) 1 [facility] Department [place] [address] * (ABNORMAL) Drugs of Abuse Screen, Urine [...] 2022. Barbiturates, ur Not Detected CutOff 200ng/mL [facility] VALERIO ([place]) Comment: Interpretive Data - Barbiturates: Samples containing greater than 200 ng/mL secobarbital or other cross-reacting barbiturate compounds are reported as positive. False positive and false negative results are possible. Confirmatory testing required for definitive results. Current Interpretive Data was last reviewed 2022. Benzodiazepines, ur Not Detected CutOff 100ng/mL [facility] ([place]) Comment: Interpretive Data - Benzodiazepines: Samples containing greater than 100 ng/mL nordiazepam or other cross-reacting compounds are reported as positive. False positive and false negative results are possible. Confirmatory testing required for definitive results. Current Interpretive Data was last reviewed 2022. Cannabinoids, ur Screen Positive, presumptive (A) CutOff 50 ng/mL [facility] ([place]) Comment: Interpretive Data - Cannabinoids: Samples [...] 2022. Urine Creatinine 100 mg/dL [facility] ([place]) Comment: Interpretive Data Urine Creatinine: < 10 mg/dL is extremely dilute = or > 10 but < 20 mg/dL is dilute = or > 20 mg/dL is normal Current Interpretive Data was last revised on 2017. Urine 08/13/2024 8:37 AM CDT 08/13/2024 8:42 AM CDT Narrative [facility] ([place]) - 08/13/2024 9:19 AM CDT Drug of Abuse screening is performed by immunoassay for medical purposes only. This is not to be used for Pain Management purposes. Mei Payan MD LAB URINE ORDERABLES Kayleigh l Result Performing Organization Address [facility] Co de Phone Number [facility] ([place]) 1 [facility] [place] [address] * (ABNORMAL) Urinalysis, microscopic only (08/13/2024 8:37 AM CDT) WBC, ur >50(A) 0 - 5 /HPF RBC, ur >50(A) 0 - 2 /HPF [facility] ([place]) Epithelial cells, squamous, ur 11-20(A) 0 - 5 /HPF [facility] ([place]) Comment:Suggestive of contam ination. Consider recollection by clean catch. Bacteria, ur 2+(A) [facility] ([place]) Mucous, ur Present(A) [facility] Guillen ([place]) Culture Reflex Comment Reflex to urine culture will be performed. [facility] ([place]) Urine 08/13/2024 8:37 AM CDT 08/13/2024 8:42 AM CDT Mei Payan MD LAB URINE ORDERABLES Kayleigh l Result Performing Organization Address [facility] Co de Phone Number [facility] ([place]) 1 [facility] [place] [address] * Urine culture Urine (08/13/2024 8:37 AM CDT) Report Final Report: Less than 100,000 colonies/mL (clinically insignificant growth based on current clinical standards) Comment:Testing performed by : [facility], [address] [place]., [address] Organism (CLINICALLY INSIGNIFICANT GROWTH [facility]IO ([place]) Urine 08/13/2024 8:37 AM CDT 08/13/2024 1:13 PM CDT Narrative [facility] ([place]) - 08/14/2024 2:54 PM CDT Urine culture reflexed based upon urinalysis results. Testing performed by [facility] ([phone]) us Mei Payan MD LAB MICROBIOLOGY - GENERA L ORDERABLES Final Result [facility] ([place]) 1 [facility] Department [place] [address] from Last 3 Months Insurance [facility] Advance Directives For more information, please contact: [phone] * Full Code (Latest Code Status on [...] 11:32 AM 08/10/2022 5:23 PM Care Teams Assembler Hydraulic Backhoe Relationship Specialty Start Date End Date Mikey Snyder MD PCP - General 08/18/20
== END 2024-09-17 12:54 | disposition home or self-care (01) ==
PROVIDERS: Emergency Provider Nurse Practitioner Family; PCP Family Medicine
DX: B37.31 Acute candidiasis of vulva and vagina (principal)
CPT/HCPCS: 99213; G0463

== ENCOUNTER 2025-01-03 09:21 | Emergency (ER) | payer OTHER, SELFPAY ==
[2025-01-03 09:24] VITALS: BP 139/70; PULSE 87; RESP 20; TEMP 36.3; O2SAT 100
--- NOTE | 2025-01-03 09:30 | ED_ITS ---
HPI - General Adult General Chief complaint: Nausea/Vomiting/Diarrhea Stated complaint: nausea/and check on galbladder surgery Time Seen by Provider: 01/03/25 09:32 Source: patient and RN notes reviewed Mode of arrival: ambulatory Limitations: no limitations History of Present Illness HPI narrative: 29-year-old female presented for complaint of a draining wound from the umbilicus. Onset 4 days. States she had this intermittently in the past. Endorses it is draining green discharge. She has been cleaning with alcohol , and is concerned it will affect her surgical incisions. She had a cholecystectomy 6 weeks ago. Patient also reports nausea vomiting, diarrhea. Onset today. Denies abdominal pain, fever or lethargy. Endorses coworkers have had similar symptoms. She took a leftover Zofran this morning and has been able to tolerate fluids. Related Data Home Medications ?Medication ?Instructions ?Recorded ?Confirmed ?Last Taken ?Type norgestimate 0.25 mg-ethinyl tablet 01/03/25 Unknown History estradiol 0.035 mg tablet ([place]) Allergies Allergy/AdvReac Type Severity Reaction Status Date / Time aspirin Allergy Intermediate Swelling Verified 01/03/25 09:42 ketorolac (From Toradol) Allergy Intermediate Hives Verified 01/03/25 09:42 codeine AdvReac Intermediate Unknown Verified 01/03/25 09:42 tramadol AdvReac Mild Vomiting Verified 01/03/25 09:42 Review of Systems Review of Systems: CONSTITUTIONAL: reports body aches, denies fever, chills ENT: Denies rhinorrhea, congestion CARDIOVASCULAR: Denies chest pain, palpitations, or edema. RESPIRATORY: Denies cough or dyspnea. GASTROINTESTINAL: Endorses nausea, vomiting, diarrhea. Denies abdominal pain hematochezia, melena, hematemesis GENITOURINARY: Denies dysuria, hematuria, or CVA tenderness. SKIN: reports draining wound from umbilicus MUSCULOSKELETAL: Denies back pain, joint pain, or myalgia. NEUROLOGIC: Denies headache, numbness, tingling, or weakness. All systems reviewed & are unremarkable except as noted in HPI and below PMFSH Past Medical History Medical History No pertinent past medical history Surgical History Surgical History History of tonsillectomy Family History Family History Mother Family history non-contributory Social History Social History Smoking status: Never smoker Living arrangements: with family Gender identity (if verbalized by the patient): Female Comments At time of signature, I have reviewed and agree with nursing past medical, surgical, social and family history unless otherwise noted. Please see nursing chart for further information. There is no relevant family history pertinent to the presenting complaint Exam Narrative: GENERAL: Well-appearing, and in no acute distress. ENT: Mucous membranes pink and moist. CHEST: No respiratory distress. Clear to auscultation. HEART: Regular rate and rhythm. No murmur appreciated. Normal peripheral pulses. ABDOMEN: abd soft, nondistended, normal active bowel sounds. nontender abdomen: No guarding, rebound tenderness, asymmetry SKIN: Umbilical area with healed surgical incision. Scant serous fluid from deep. Warm, dry, no rash. Capillary refill normal. Normal skin turgor. NEURO: No focal deficits. Alert and oriented x3. PSYCH: Normal affect. Course Course Emergency Course: Patient is aware of diagnosis, understands and agrees to treatment plan. Anticipatory guidance given. Patient agrees to follow-up as directed and is aware of reasons to seek care at the emergency department. Portions of this record may have been created with voice recognition software Level of Care: Express Care Visit Vital Signs Vital signs: Vital Signs Temperature 97.4 F L 01/03/25 09:24 Pulse Rate 87 01/03/25 09:24 Respiratory Rate 20 01/03/25 09:24 Blood Pressure 139/70 01/03/25 09:24 Pulse Oximetry 100 01/03/25 09:24 Oxygen Delivery Room Air 01/03/25 09:24 Temperature 97.4 F L 01/03/25 09:24 Pulse Rate 87 01/03/25 09:24 Respiratory Rate 20 01/03/25 09:24 Blood Pressure 139/70 01/03/25 09:24 Pulse Oximetry 100 01/03/25 09:24 Oxygen Delivery Room Air 01/03/25 09:24 Medical Decision Making MDM Narrative Medical decision making narrative: Pt is in stable condition, tolerating PO. Discussed physical exam findings, will culture wound. Rx ondansetron. Advised supportive measures and signs/symptoms to go to the ER. Pt is appropriate for outpt treatment and f/u. Differential Diagnosis Differential Diagnosis: Consider gastroenteritis, GERD, bowel obstruction or perforation, cholecystitis, appendicitis, hernia, mesenteric ischemia, pancreatitis, peritonitis, AAA Vital Signs Vital Signs: Vital Signs Temperature 97.4 F L 01/03/25 09:24 Pulse Rate 87 01/03/25 09:24 Respiratory Rate 20 01/03/25 09:24 Blood Pressure 139/70 01/03/25 09:24 Pulse Oximetry 100 01/03/25 09:24 Oxygen Delivery Room Air 01/03/25 09:24 Temperature 97.4 F L 01/03/25 09:24 Pulse Rate 87 01/03/25 09:24 Respiratory Rate 20 01/03/25 09:24 Blood Pressure 139/70 01/03/25 09:24 Pulse Oximetry 100 01/03/25 09:24 Oxygen Delivery Room Air 01/03/25 09:24 Discharge Plan Discharge Clinical Impression: Nausea, vomiting and diarrhea, Open wound of umbilical region Patient Disposition: Home Condition: Stable Instructions: Antibiotic Form, Gastroenteritis (ED) Additional Instructions: wound: Keep the area clean and dry - cleanse with warm water and mild soap and allow to fully dry. apply the ointment as prescribed we have cultured the wound, and will call you if you need antibiotics Watch for worsening symptoms including pain, redness, swelling, streaking, pus/drainage, fever. Go to the ER with any of these symptoms or concerns. Follow up with primary care provider nausea, vomiting: Stay hydrated. Take small sips of fluid containing electrolytes frequently. Clear liquids (broth, jello, tea, sprite, pedialyte) [place] foods (bananas, rice, applesauce, toast, crackers) Avoid fatty, greasy, fried or spicy foods. Limit dairy until symptoms are improved. [id number] Imodium according to package directions Recommend probiotic such as align or lactobacillus to help with symptoms. You should go to the hospital if you experience persistent nausea and vomiting that does not resolve and does not allow you to tolerate any food or fluids, fevers, increasing abdominal pain, persistent diarrhea, dizziness, fainting, or for any other concerns. Follow up with primary care provider in 3 days. Patient Language: Croatian Prescriptions: New ondansetron 4 mg tablet,disintegrating 4 mg PO Q8H PRN (Reason: nausea and vomiting) Qty: 12 0RF No Action norgestimate-ethinyl estradiol [[place]] 0.25-0.035 mg tablet Follow-up/Referrals: Claudio,Mikey Treviño MD [Primary Care Provider] Stand Alone Forms: Work/School Release IP Time of Disposition: 09:49
--- OUTSIDE RECORDS SUMMARY | 2025-01-03 09:46 | XMS_ITS | Encounter Summary ---
Author Organization [facility] Healthcare Address [address] [place] [address] Care Team Providers Care Chronic Disease Manager Name Role Phone Mikey Snyder MD Primary Care Provider [phone] Gloria Ashley Unavailable Unavailable Shaun Espinoza MD Unavailable [phone] Jl Muller DNP Unavailable [phone] Reason for Visit * Auth/Cert (Routine) Specialty Diagnoses / Procedures Referred By Dulce Maria ramirez Referred To Contact Diagnoses Dysphagia, unspecified type Dysphagia, unspecified type [R13.10] Procedures MD ESOPHAGOGASTRODUODENOSCOPY TRANSORAL DIAGNOSTIC ESOPHAGOGASTRODUODENOSCOPY Referral ID Status Reason Start Date Expiration Date Visits Re quested Visits Authorized [id number] 1 1 Encounter Details Date Type Department Care Team (Late st Contact Info) Description 03/08/2024 Hospital Encounter [facility] [address] [place] [address] Berto Benitez MD [address] [place] [address] DR NEELY [address] [place] [id number] Social History Tobacco Use Types Packs/Day Years Used Date Smoking Tobacco: Never Smokeless Tobacco: Never Alcohol Use Standard Drinks/Week Comments No 0 (1 standard drink = 0.6 oz pur e alcohol) [facility] Utilities Answer Date Recorded In the past 12 months has e electric, gas, oil, or water company threatened to shut off services in your home? No 11/21/2024 Social Connection and Isolation Panel Answer Date Recorded In a typical week, how many times do you talk on the phone with family, friends, or neighbors? Three times a week 11/21/2024 How often do you get togethe r with friends or relatives? Three times a week 11/21/2024 Attends [employer] Services Not on file 11/21 Active Member of Clubs or Organizations Not on f ile 11/21/2024 Attends Club or Organization Meetings Not on nilda e 11/21/2024 Are you , , di vorced, , never , or living with a partner? 11/21/2024 AUDIT-C Answer Date Recorded Q1: How often do you have a drink containing alcohol? Never 11/21/2024 Q2: How many drinks containi ng alcohol do you have on a typical day when you are drinking? Patient does not drink Q3: How often do you have si x or more drinks on one occasion? Never 11/21/2024 Overall Financial Resource Strain (CARDIA) Answe r Date Recorded How hard is it for you to pa y for the very basics like food, housing, medical care, and heating? Not very hard 11/21/2024 Hunger Vital Sign Answer Date Recorded Within the past 12 months, y ou worried that your food would run out before you got the money to buy more. Never true 11/22/19 25 Within the past 12 months, t he food you bought just didn't last and you didn't have money to get more. Never true 11/21/2024 PRAPARE - Transportation Answer Date Re corded In the past 12 months, has l ack of transportation kept you from medical appointments or from getting medications? No 10/24 In the past 12 months, has l ack of transportation kept you from meetings, work, or from getting things needed for daily living? No 11/21/2024 Housing Stability Vital Sign Answer Flaco e Recorded In the last 12 months, was t here a time when you were not able to pay the mortgage or rent on time? No 11/21/2024 Number of Times Moved in the Last Year Not on fi le 11/21/2024 At any time in the past 12 m [facility], were you homeless or living in a long term (including now)? No 11/21/2024 Personal Safety Answer Date Recorded Have you ever been in or are you currently in a harmful physical or emotional relationship or is someone making you feel afraid or unsafe? 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 Never 11/21/2024 1:01 PM Kirk Alvarado Q2: How many drinks containing alcohol do you have on a typical day when you are drinking? Patient does not drink 11/21/2024 1:01 PM Gloria Alvarado Q3: How often do you have six or more drinks on one occasion? Never 11/21/2024 1:01 PM Kirk Alvarado documented as of this encounter Plan of Treatment Not on file documented as of this encounter Visit Diagnoses Diagnosis Dysphagia- Primary documented in this encounter Admitting Diagnoses Diagnosis Dysphagia documented in this encounter Care Teams Chronic Disease Manager Relationship Specialty Start Date End Date Mikey Snyder MD PCP - General 08/18/20 Gloria Ashley [address] [place] [address] [facility] Outpatient Grain Wafer Machine Operator 11/20/24 12/18/24 [place] [address] [place] [address] Surgeon Colon and Rectal Surgery 11/20/24 Jl Muller DNP [address] [place] [address] Nurse Practitioner Internal Medicine 11/20/24 12/18/24 documented as of this encounter
--- OUTSIDE RECORDS SUMMARY | 2025-01-03 09:46 | XMS_ITS | Clinical Summary ---
Author Organization [facility] Address [address] [place] [address] Care Team Providers Care Quality Coordinator Name Role Phone Mikey Snyder MD Primary Care Provider [phone] Shaun Espinoza MD Unavailable [phone] Allergies Active Allergy Reactions Criticality Noted Date [...] Low 03/08/2018 Tramadol Hives Medium 11/14/2015 Medications busPIRone (BUSPAR) 5 mg tabletIndications: Generalized Anxiety Disorder Take 1 tablet (5 mg total) by mouth as needed Active ondansetron ODT (ZOFRAN-ODT) 4 mg disintegrating tablet Take 1 tablet (4 mg total) by mouth every 8 (eight) hours as needed for nausea or vomiting 20 tablet 3 Active budesonide (PULMICORT) 1 mg/2 mL nebulizer solutionIndication s:Eosinophilic Esophagitis Mix the content of 1 ampul with 10 g of Splenda and swallow. Do not eat or drink for 30 minutes afterwards. 60 mL 3 4 Active omeprazole (PriLOSEC) 40 mg capsule Take 1 capsule (40 mg total) by mouth daily 90 capsule 1 4 Active cyclobenzaprine (FLEXERIL) 10 mg tabletIndications: Muscle Spasm Take 1 tablet (10 mg total) by mouth 2 (two) times a day as needed for muscle spasms 20 tablet 5 Active albuterol HFA (Ventolin HFA) 90 mcg/actuation inhalerIndications :Upper respiratory tract infection, unspecified type Inhale 2 puffs every 4 (four) hours as needed for wheezing or shortness of breath 8 g 3 5 Active psyllium, aspartame, SF (METAMUCIL SF) 3.4 gram packet Take 1 packet by mouth 2 (two) times a day 60 packet 11 5 11/21/19 26 Active ramelteon (ROZEREM) 8 mg tabletIndications: Sleep-Onset Insomnia Take 1 tablet (8 mg total) by mouth nightly as needed for sleep 30 tablet 5 Active HYDROcodone-acetam inophen (NORCO) 5-325 mg per tabletIndications: Pain Take 1 tablet by mouth every 6 (six) hours as needed for pain for up to 20 doses 20 tablet 5 Active Active Problems Problem Noted Date Diagnosed Date Abdominal pain 11/17/2024 Cholecystitis 11/17/2024 Epigastric burning sensation 10/28/2023 Assessment & Plan [...] Sprain of deltoid ligament of left ankle 03/19/2 021 Foot sprain, left, initial encounter 07/10/2020 [...] (01/08/2020): Added automatically from request for surgery [id number] Assessment & Plan (01/29/2020 3:56 PM CDT): Ciprofloxacin ear drops 7 drops into each ear twice daily for 7 days Ear drops discussed and Handout provided Acute right otitis media 03/20/2019 Acute serous otitis media of left ear 03/20/2019 Acute maxillary sinusitis 03/20/2019 Preeclampsia in period 08/10/2017 Encounters Date Type Department Care Team Description 12/19/2024 SHOP/CHAP Subsequent Outreach Transition to Wellness [address] [place] [phone] [facility] 12/12/2024 SHOP/CHAP Subsequent Outreach Transition to Wellness [address] [place] [phone] [facility] 12/05/2024 1:30 PM CDT Office Visit [facility] Medicine Surgery [id number] [place] [address] [address] [place] [address] Saloni Henry, PAIGE Cholecystitis (Primary Dx) 12/05/2024 SHOP/CHAP Subsequent Outreach Transition to Wellness [address] [place] [phone] [facility] [place] 11/28/2024 SHOP/CHAP Subsequent Outreach Transition to Wellness [address] [place] [phone] [facility] [place] 11/22/2024 [facility] Post Discharge Follow up phone call [address] [address] Elis Morrissey RN 11/21/2024 SHOP/CHAP Initial Outreach Transition to Wellness [address] [place] [phone] [facility] [place] 11/20/2024 SHOP/CHAP Inpatient Enrollment Transition to Wellness [address] [place] [phone] HeriRobb, Gloria 11/20/2024 SHOP/CHAP Initial Eligibility Review Transition to Wellness [address] [place] [address] [place] [address] Gloria Ashley 11/18/2024 7:32 AM CDT Anesthesia Event [facility] Operating Room [address] [place] [address] Kaushik Guidry MD Ifune, Catherine K., MD PhD 11/18/2024 7:30 AM CDT - 11/18/2024 10:00 AM CDT Surgery [facility] Operating Room [address] [place] [address] Shaun Espinoza MD XI CHOLECYSTECTOMY, MULTIPORT - LAPAROSCOPIC ROBOTIC 11/17/2024 5:50 AM CDT - 11/20/2024 12:32 PM CDT Hospital Encounter [address] [address] Tristan Aguiar MD Perez Porcel, Jose Daniel, MD Cholecystitis; Upper respiratory tract infection, unspecified type Discharge Disposition: Discharge to home or self care 11/17/2024 5:23 AM CDT - 11/17/2024 11:59 PM CDT Hospital Encounter [facility] Emergency, Room R Discharge Disposition: Discharge to home or self care 11/17/2024 12:50 AM CDT - 11/17/2024 5:21 AM CDT Emergency [facility] Emergency Department [address] [place], [place] [id number] Cecilio Sherwood MD Cholecystitis (Primary Dx) Discharge Disposition: Discharge to not defined facility 10/21/2024 5:21 AM CDT - 10/21/2024 10:51 AM CDT Emergency [facility] Emergency Department [address] [place] [address] Yao Verma MD Acute low back pain without sciatica, unspecified back pain laterality (Primary Dx) Discharge Disposition: Discharge to home or self care 10/14/2024 5:01 PM CDT - 10/14/2024 8:02 PM CDT Emergency [facility] Emergency Department [address] [place] [id number] Michi Lepe MD Lumbar strain, initial encounter (Primary Dx); Cyst of right ovary; Class 3 severe obesity without serious comorbidity with body mass index (BMI) of 50.0 to 59.9 in adult, unspecified obesity type Discharge Disposition: Discharge to home or self care from Last 3 Months Immunizations Immunization Administration Dates Next Due Influenza, Trivalent, Preservative Free, Intramu scular 04/01/2024 MMR 08/04/2017 Surgical History Surgery Date Site/Laterality Comments TONSILLECTOMY AND ADENOIDECTOMY 04/24/1998 - 04/23/1999 Bilateral MYRINGOTOMY W/ TUBES 04/24/1998 - 04/23/1999 Pt. states shes had myringotomy tubes throughout her life. Her most recent procedure was in 2019. LAPAROSCOPIC CHOLECYSTECTOMY W/ CHOLANGIOGRAPHY 11/18/2024 Medical History Medical History Date Comments Depression [...] drink = 0.6 oz pur e alcohol) [facility] Utilities Answer Date Recorded In the past 12 months has th e electric, gas, oil, or water company [...] relatives? Three times a week 11/21/2024 Attends Christian Services Not on file 11/21 Active Member [...] any time in the past 12 m [facility], were you homeless or living in a residential (including now)? No 11/21/2024 Personal Safety Answer Date Recorded Have you ever been in or are you currently in a harmful physical or emotional relationship or is someone making you feel afraid or unsafe? 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 Gender Identity Not on file Sexual Orientation [...] Sign Reading Time Taken Comments Blood Pressure 133/87 11/20/2024 7:45 AM CDT Pulse 76 11/20/2024 7:45 AM CDT Temperature 36.9 C (98.4 F) 11/20/2024 7:45 AM CDT Respiratory Rate 18 11/19/2024 4:14 PM CDT Oxygen Saturation 94% 11/20/2024 7:45 AM CDT Inhaled Oxygen Concentration - - Weight 120.9 kg (266 lb 9.6 oz) 11/17/2024 1:35 PM CDT Height 160 cm (5' 3) 11/17/2024 7:46 AM CDT Body Mass Index 47.23 11/17/2024 7:46 AM CDT Plan of Treatment Health Maintenance Due Date Last Done Comments Cervical Cancer Screening 1995 Depression Screening 1995 Hepatitis C Screening 1995 Regular Well Visit/Exam 18-64 10/18/2011 Pneumococcal vaccine <65 (2 of 2 - PCV) 09/02/2015 09/01/2014 Varicella Vaccines (2 of 2 - 2-dose childhood series) 09/01/2017 09/28/1998 Influenza Vaccine (#1) 2024 4, 03/24/2020, 03/01/2019, Additional history exists DTaP/Tdap/Td Vaccine (9 - Td or Tdap) 07/09/2034 07/09/2024, 05/10/2017, 06/16/2009, Additional history exists Hepatitis B Screening Completed 08/16/1994 , 1995, 1993 HPV Vaccines Completed 01/11/2010, 07/24, 06/16/2009 Medical Devices Implanted Type Area Technician Automatic Device Identifier Shelf Expiration Date Model / Serial / Lot [employer] [id number] 1.32mm 4.8mm Modify Ear T Tube Ventilation Ultrasil Sterile Blue - [id number] Implanted:Qty: 1 on 01/23/2020 by Johanna Almaguer DO at [facility] Bilateral: Tympanic Membrane [employer] 03/10/2029 [id number] / / [id number] Procedures Procedure Name Priority Date/Time Associated Diagnosis Comments EGFR Routine 11/20/2024 3:19 AM CDT DIFFERENTIAL AUTO Routine 11/20/2024 3:1 9 AM CDT COMPREHENSIVE METABOLIC PANEL Routine 11/20/2024 3:19 AM CDT CBC WITH AUTO DIFFERENTIAL Routine 11/20/2024 3:19 AM CDT EGFR Routine 11/19/2024 6:02 AM CDT DIFFERENTIAL AUTO Routine 11/19/2024 6:0 2 AM CDT COMPREHENSIVE METABOLIC PANEL Routine 11/19/2024 6:02 AM CDT CBC WITH AUTO DIFFERENTIAL Routine 11/19/2024 6:02 AM CDT SURGICAL PATHOLOGY Routine 11/18/2024 1: 22 PM CDT Cholecystitis [place] AN ELECTIVE ENDOTRACHEAL AIRWAY Routine 11/18/2024 7:47 AM CDT XI CHOLECYSTECTOMY, MULTIPORT - LAPAROSCOPIC ROBOTIC 11/18/2024 7:32 AM CDT CHOLELITHIASIS EGFR Routine 11/18/2024 3:40 AM CDT DIFFERENTIAL AUTO Routine 11/18/2024 3:4 0 AM CDT COMPREHENSIVE METABOLIC PANEL Routine 11/18/2024 3:40 AM CDT CBC WITH AUTO DIFFERENTIAL Routine 11/18/2024 3:40 AM CDT EGFR Routine 11/17/2024 9:21 AM CDT DIFFERENTIAL AUTO Routine 11/17/2024 9:2 1 AM CDT COMPREHENSIVE METABOLIC PANEL Routine 11/17/2024 9:21 AM CDT CBC WITH AUTO DIFFERENTIAL Routine 11/17/2024 9:21 AM CDT ED CRITICAL CARE Routine 11/17/2024 3:02 AM CDT POCT HCG, URINE Routine 11/17/2024 2:36 AM CDT ECG 12-LEAD STAT 11/17/2024 1:07 AM CDT EGFR STAT 11/17/2024 12:56 AM CDT DIFFERENTIAL AUTO STAT 11/17/2024 12: 56 AM CDT TROPONIN T HIGH-SENSITIVITY SERIES (BASELINE, 2HR, 4HR, 6HR) STAT 11/17/2024 12:56 AM CDT LIPASE STAT 11/17/2024 12:56 AM CDT COMPREHENSIVE METABOLIC PANEL STAT 11/17/2024 12:56 AM CDT CBC WITH AUTO DIFFERENTIAL STAT 11/17/2024 12:56 AM CDT US PELVIS W ENDOVAGINAL ED 10/21/2024 9:36 AM CDT EGFR STAT 10/21/2024 7:10 AM CDT HCG, BLOOD, QUANTITATIVE Add-On 10/21/2024 7:10 AM CDT DIFFERENTIAL AUTO STAT 10/21/2024 7:1 0 AM CDT BASIC METABOLIC PANEL STAT 10/21/2024 7:10 AM CDT CBC WITH AUTO DIFFERENTIAL STAT 10/21/2024 7:10 AM CDT XR SPINE LUMBAR 2 OR 3 VIEWS ED 10/14/2024 5:[address] KUB STONE WO CONTRAST ED 10/14/2024 4:30 PM CDT POCT HCG, URINE Routine 10/14/2024 2:54 PM CDT URINALYSIS AND REFLEX TO MICROSCOPIC AND CULTURE STAT 10/14/2024 2:53 PM CDT EGFR STAT 10/14/2024 2:39 PM CDT DIFFERENTIAL AUTO STAT 10/14/2024 2:3 9 PM CDT LIPASE STAT 10/14/2024 2:39 PM CDT COMPREHENSIVE METABOLIC PANEL STAT 10/14/2024 2:39 PM CDT CBC WITH AUTO DIFFERENTIAL STAT 10/14/2024 2:39 PM CDT from Last 3 Months Results * eGFR (11/20/2024 3:19 AM CDT) eGFR >90 >=60 mL/min/1. 73 m2 Comment: Interpretive Data Reference Interval Normal >/= 90 mL/min/1.73m2 Mildly decreased* 60 - 89 mL/min/1.73m2 Mildly to moderately decreased 45 - 59 mL/min/1.73m2 Moderately to severely decreased 30 - 44 mL/min/1.73m2 Severely decreased 15 - 29 mL/min/1.73m2 Kidney Failure < 15 mL/min/1.73m2 *Relative to young adult level Estimated glomerular filtration rate is determined by the 2020 CKD-EPI equation recommended by the National Kidney Foundation (A Unifying Approach to GFR Estimation: Recommendations of the NKF-ASK Task Force on Reassessing the Inclusion of Race in Diagnosing Kidney Disease, JASN 2020). The CKD-EPI equation should not be used for patients with unstable renal function and has not been validated in children and those over 70. Current interpretive data was last reviewed 2021. Blood 11/20/2024 3:19 AM CDT 11/20/2024 4:18 AM CDT Shaun Espinoza MD LAB BLOOD ORDERABLES F inal Result [facility] [id number] Department [place] [address] * (ABNORMAL) Differential, auto (11/20/2024 3:19 AM CDT) Neutrophil abs 7.47(H) 1.50 - 6.50 K/cumm Imm gran abs 0.06 0.00 - 0.10 K/cumm [facility] Lymphocyte abs 2.77 0.80 - 3.30 K/cumm [facility] Monocyte abs 0.71 0.20 - 0.80 K/cumm [facility] Eosinophil abs 0.12 0.00 - 0.50 K/cumm [facility] Basophil abs 0.02 0.00 - 0.10 K/cumm [facility] Neutrophil pct 67.0 % [facility] Comment: Interpretive Data Percent cell count reference ranges are not reported, since discordance with absolute values may lead to misinterpretation of CBC data. Current Interpretive Data was last revised on 2017. Imm gran pct 0.5 % [facility] Comment: Interpretive Data Percent cell count reference ranges are not reported, since discordance with absolute values may lead to misinterpretation of CBC data. Current Interpretive Data was last revised on 2017. Lymphocyte pct 24.8 % [facility] Comment: Interpretive Data Percent cell count reference ranges are not reported, since discordance with absolute values may lead to misinterpretation of CBC data. Current Interpretive Data was last revised on 2017. Monocyte pct 6.4 % [facility] Comment: Interpretive Data Percent cell count reference ranges are not reported, since discordance with absolute values may lead to misinterpretation of CBC data. Current Interpretive Data was last revised on 2017. Eosinophil pct 1.1 % [facility] Comment: Interpretive Data Percent cell count reference ranges are not reported, since discordance with absolute values may lead to misinterpretation of CBC data. Current Interpretive Data was last revised on 2017. Basophil pct 0.2 % [facility] Comment: Interpretive Data Percent cell count reference ranges are not reported, since discordance with absolute values may lead to misinterpretation of CBC data. Current Interpretive Data was last revised on 2017. Blood 11/20/2024 3:19 AM CDT 11/20/2024 4:17 AM CDT Shaun Espinoza MD LAB BLOOD ORDERABLES F inal Result [facility] [address] [place] [address] * (ABNORMAL) CBC with auto differential (11/20/2024 3:19 AM CDT) WBC 11.15(H) 3.80 - 9.90 K/cumm Hgb 10.4(L) 11.9 - 15.5 g/dL [facility] Hct 32.1(L) 35.6 - 45.5 % [facility] Plt 415(H) 150 - 400 K/cumm [facility] MPV 9.1 9.1 - 12.3 fL [facility] RBC 3.62(L) 3.90 - 5.20 M/cumm [facility] MCV 88.7 81.3 - 96.4 fL [facility] Comment:No apparent cause fo r delta. MCH 28.7 27.1 - 33.3 pg [facility] MCHC 32.4 32.3 - 35.7 g/dL [facility] RDW CV 12.5 11.1 - 14.9 % [facility] RDW SD 40.7 35.7 - 48.1 fL [facility] NRBC abs 0.00 0.00 - 0.01 K/cumm [facility] Blood 11/20/2024 3:19 AM CDT 11/20/2024 4:17 AM CDT us Shaun Espinoza MD LAB BLOOD ORDERABLES F inal Result Performing Organization Address [facility]/ZIP Co wy Phone Number [facility] [phone] [place] [address] * (ABNORMAL) Comprehensive metabolic panel (11/20/2024 3:19 AM CDT) Sodium 140 135 - 145 mmol/L Potassium, pl 3.4 3.3 - 4.9 mmol/L [facility] Chloride 105 97 - 110 mmol/L [facility] CO2 23 22 - 32 mmol/L [facility] Anion gap 12 2 - 15 mmol/L [facility] BUN 11 6 - 25 mg/dL [facility] Creatinine 0.53(L) 0.60 - 1.10 mg/dL [facility] Glucose 114 70 - 199 mg/dL [facility] Comment: Interpretive Data Fasting glucose >/= 126 mg/dl is diagnostic for diabetes. Fasting is defined as no caloric intake for at least 8 hours. Fasting glucose between 100 mg/dl to 125 mg/dl is diagnostic of prediabetes. In a patient with classic symptoms of hyperglycemia or hyperglycemic crisis, a random glucose >/= 200 mg/dl is diagnostic for diabetes. In the absence of unequivocal hyperglycemia, results should be confirmed by repeat testing. The classification and Diagnosis of Diabetes Diabetes Care 202; 46: S19-S40. Current interpretive data was last revised 2022. Calcium 8.6 8.5 - 10.3 mg/dL [facility] Bilirubin, total 0.4 0.1 - 1.2 mg/dL [facility] Protein, pl 7.1 6.5 - 8.5 g/dL [facility] Albumin 3.8 3.5 - 5.0 g/dL [facility] Alk phos 72 40 - 130 Units/L [facility] ALT 10 7 - 45 Units/L [facility] AST 18 10 - 45 Units/L [facility] Blood 11/20/2024 3:19 AM CDT 11/20/2024 4:18 AM CDT Shaun Espinoza MD LAB BLOOD ORDERABLES F inal Result Performing Organization Address [facility]/State/ZIP Co de Phone Number [facility] WALSH [address] Department [place] [address] * eGFR (11/19/2024 6:02 AM CDT) eGFR >90 >=60 mL/min/1. 73 m2 Comment: Interpretive Data Reference Interval Normal >/= 90 mL/min/1.73m2 Mildly decreased* 60 - 89 mL/min/1.73m2 Mildly to moderately decreased 45 - 59 mL/min/1.73m2 Moderately to severely decreased 30 - 44 mL/min/1.73m2 Severely decreased 15 - 29 mL/min/1.73m2 Kidney Failure < 15 mL/min/1.73m2 *Relative to young adult level Estimated glomerular filtration rate is determined by the 2020 CKD-EPI equation recommended by the National Kidney Foundation (A Unifying Approach to GFR Estimation: Recommendations of the NKF-ASK Task Force on Reassessing the Inclusion of Race in Diagnosing Kidney Disease, JASN 2020). The CKD-EPI equation should not be used for patients with unstable renal function and has not been validated in children and those over 70. Current interpretive data was last reviewed 2021. Blood 11/19/2024 6:02 AM CDT 11/19/2024 6:59 AM CDT us Shaun Espinoza MD LAB BLOOD ORDERABLES F inal Result Performing Organization Address City/[facility]/ZIP Co de Phone Number GINNY WALSH [phone] Department [place] [address] * Differential, auto (11/19/2024 6:02 AM CDT) Neutrophil abs 5.66 1.50 - 6.50 K/cumm Imm gran abs 0.06 0.00 - 0.10 K/cumm [facility] Lymphocyte abs 2.35 0.80 - 3.30 K/cumm [facility] Monocyte abs 0.75 0.20 - 0.80 K/cumm [facility] Eosinophil abs 0.06 0.00 - 0.50 K/cumm [facility] Basophil abs 0.03 0.00 - 0.10 K/cumm [facility] Neutrophil pct 63.5 % [facility] Comment: Interpretive Data Percent cell count reference ranges are not reported, since discordance with absolute values may lead to misinterpretation of CBC data. Current Interpretive Data was last revised on 2017. Imm gran pct 0.7 % [facility] Comment: Interpretive Data Percent cell count reference ranges are not reported, since discordance with absolute values may lead to misinterpretation of CBC data. Current Interpretive Data was last revised on 2017. Lymphocyte pct 26.4 % [facility] Comment: Interpretive Data Percent cell count reference ranges are not reported, since discordance with absolute values may lead to misinterpretation of CBC data. Current Interpretive Data was last revised on 2017. Monocyte pct 8.4 % [facility] Comment: Interpretive Data Percent cell count reference ranges are not reported, since discordance with absolute values may lead to misinterpretation of CBC data. Current Interpretive Data was last revised on 2017. Eosinophil pct 0.7 % [facility] Comment: Interpretive Data Percent cell count reference ranges are not reported, since discordance with absolute values may lead to misinterpretation of CBC data. Current Interpretive Data was last revised on 2017. Basophil pct 0.3 % [facility] Comment: Interpretive Data Percent cell count reference ranges are not reported, since discordance with absolute values may lead to misinterpretation of CBC data. Current Interpretive Data was last revised on 2017. Blood 11/19/2024 6:02 AM CDT 11/19/2024 6:58 AM CDT us Shaun Espinoza MD LAB BLOOD ORDERABLES F inal Result [facility] [address] Department [place] [address] * (ABNORMAL) CBC with auto differential (11/19/2024 6:02 AM CDT) WBC 8.91 3.80 - 9.90 K/cumm Hgb 12.3 11.9 - 15.5 g/dL [facility] Hct 39.6 35.6 - 45.5 % [facility] Plt 396 150 - 400 K/cumm [facility] MPV 9.7 9.1 - 12.3 fL [facility] RBC 4.22 3.90 - 5.20 M/cumm [facility] MCV 93.8 81.3 - 96.4 fL [facility] MCH 29.1 27.1 - 33.3 pg [facility] MCHC 31.1(L) 32.3 - 35.7 g/dL [facility] RDW CV 12.6 11.1 - 14.9 % [facility] CH RDW SD 43.4 35.7 - 48.1 fL [facility] NRBC abs 0.00 0.00 - 0.01 K/cumm [facility] Blood 11/19/2024 6:02 AM CDT 11/19/2024 6:58 AM CDT Shaun Espinoza MD LAB BLOOD ORDERABLES F inal Result [facility] [address] [place] [address] * (ABNORMAL) Comprehensive metabolic panel (11/19/2024 6:02 AM CDT) Sodium 140 135 - 145 mmol/L Potassium, pl 3.7 3.3 - 4.9 mmol/L [facility] Chloride 103 97 - 110 mmol/L [facility] CO2 22 22 - 32 mmol/L [facility] Anion gap 15 2 - 15 mmol/L [facility] BUN 10 6 - 25 mg/dL [facility] Creatinine 0.54(L) 0.60 - 1.10 mg/dL [facility] Glucose 105 70 - 199 mg/dL [facility] Comment: Interpretive Data Fasting glucose >/= 126 mg/dl is diagnostic for diabetes. Fasting is defined as no caloric intake for at least 8 hours. Fasting glucose between 100 mg/dl to 125 mg/dl is diagnostic of prediabetes. In a patient with classic symptoms of hyperglycemia or hyperglycemic crisis, a random glucose >/= 200 mg/dl is diagnostic for diabetes. In the absence of unequivocal hyperglycemia, results should be confirmed by repeat testing. The classification and Diagnosis of Diabetes Diabetes Care 2021; 46: S19-S40. Current interpretive data was last revised 2022. Calcium 8.7 8.5 - 10.3 mg/dL [facility] Bilirubin, total 0.6 0.1 - 1.2 mg/dL [facility] Protein, pl 7.5 6.5 - 8.5 g/dL [facility] Albumin 3.8 3.5 - 5.0 g/dL [facility] Alk phos 79 40 - 130 Units/L [facility] ALT 12 7 - 45 Units/L [facility] AST 26 10 - 45 Units/L [facility] Blood 11/19/2024 6:02 AM CDT 11/19/2024 6:59 AM CDT Shaun Espinoza MD LAB BLOOD ORDERABLES F inal Result [address] [place] [address] * Surgical pathology (11/18/2024 1:22 PM CDT) Tissue (Gallbladder) 11/18/2024 9:00 AM CDT Narrative PATHOLOGY - 11/19/2024 8:13 PM CDT EPIC results best viewed via link to PDF [facility] Department of Pathology [address] [place] [id number] Note to Patients: This report may contain a detailed description of human tissue sent by a health care provider to the laboratory for pathologic evaluation. The content of this report is essential for diagnosis and may provide important critical findings. This information may be unfamiliar to patients to review without a medical professional present. It is advised that the patient review this report in the presence of a health care provider who can answer questions and explain the details. Final Report Patient Name: WENDY SOTELO Address: [address] [place] [address] Gender: F : 1995 (Age: 29) Service: Surgery Location: [facility] #: [id number] Patient Type: [facility] Taken: 11/18/2024 Received: 11/18/2024 Accessioned: 11/18/2024 Reported: 11/19/2024 Physician(s):Dr. Marlene Espinoza M.D. Mikey Snyder M.D. Diagnosis: Gallbladder, laparoscopic cholecystectomy: - Chronic cholecystitis. - Cholelithiasis. Kiki Jamison M.D. Report Electronically Reviewed and Signed Out By Kiki Jamison M.D. 11/19/2024 20:13:40 Specimen(s) Received: A: Gallbladder Microscopic Description: Microscopic examination of the gallbladder show gallbladder mucosa with a variable chronic inflammatory infiltrate and focal invagination of the overlying epithelium into the muscular layer (Rokitansky Aschoff sinuses). There is no evidence of dysplasia or malignancy. Single benign lymph node is also noticed. Clinical History: Cholelithiasis Procedure: XI cholecystectomy, multiport - laparoscopic robotic Gross Description: The specimen is received in a single container labeled WENDY JERRY-BAITER and gallbladder. It is a gallbladder that measures 7.5 x 3 cm. The serosa is congested with tears. The wall measures up to 0.2 cm in thickness. The lumen contains green brown bile and multiple yellow granular and faceted stone with stone fragments measuring up to 1.1 cm. The mucosa is pale alicea and trabeculated. Adjacent to the bile duct is a pink alicea fatty node measuring 1 cm. The bile duct margin is inked blue. Represented in one cassette. Lynda Lopez R.N., P.A./Kiki Jamison M.D. REPORT IMAGES AND SCANNED DOCUMENTS, IF INCLUDED, ONLY VIEWABLE IN PDF VERSION OF REPORT The performance characteristics of some immunohistochemical stains, fluorescence in-situ hybridization tests and immunophenotyping by flow cytometry cited in this report (if any) were determined by the Surgical Pathology Department at [facility] as part of an ongoing vice president quality assurance program and in compliance with federally mandated regulations drawn from the Clinical Laboratory Improvement Act of 1988 (CLIA '88). Some of these tests rely on the use of analyte specific reagents and are subject to specific labeling requirements by the US Food and Drug Administration. Such diagnostic tests may only be performed in a facility that is certified by the Department of Health and Human Services as a high complexity laboratory under CLIA '88. The FDA has determined that such clearance or approval is not necessary. This test is used for clinical purposes. It should not be regarded as investigational or for research. Nevertheless, federal rules concerning the medical use of analyte specific reagents require that the following disclaimer be attached to the report: This test was developed and its performance characteristics determined by the Surgical Pathology Department [facility]. It has not been cleared or approved by the U. S. Food and Drug Administration. Note for decalcified specimens: This assay has not been validated on decalcified tissues. Results should be interpreted with caution given the possibility of false negativity on decalcified specimens Shaun Espinoza MD LAB PATHOLOGY ORDERABL ES Final Result PATHOLOGY [id number] [id number] * [place] AN ELECTIVE ENDOTRACHEAL AIRWAY (11/18/2024 7:47 AM CDT) Narrative Hayder Solitario AA - 11/18/2024 7:47 AM CDT Hayder Solitario AA 11/18/2024 7:48 AM Airway Patient location: OR Urgency: elective Indications for airway management: anesthesia Difficult airway: yes Maneuvers that helped ventilation: 2 person bag and mask and oral airway Factors contributing to ventilation difficulty: obesity Maneuvers that helped intubation: different blade/size Staff: Supervising provider: Kaushik Guidry MD Placed by: AA: Hayder Solitario AA Emergent airway documentation: Risks and benefits discussed: yes Consent obtained: yes Consent given by: patient Airway prep: Preoxygenated: yes Patient position: sniffing Mask difficulty assessment: 3 - difficult mask (inadequate, unstable or two providers) Spontaneous ventilation during airway: absent Sedation level during airway: GA Final airway details: Final airway type: endotracheal airway Tube type: ETT ETT size: 7.5 mm Cuffed: yes Technique used for successful ETT placement: video laryngoscopy Insertion site: oral Blade type: Ysabel Video blade type: Fowler Blade size: 3 Cormack-Lehane (direct): grade I - full view of glottis Cuff inflated with: air Placement verified by: auscultation and CO2 detection Airway secured with: silk tape Number of attempts: 1 us Kaushik Guidry MD ANESTHESIA ORDERABLES Final Result * eGFR (11/18/2024 3:40 AM CDT) eGFR >90 >=60 mL/min/1. 73 m2 Comment: Interpretive Data Reference Interval Normal >/= 90 mL/min/1.73m2 Mildly decreased* 60 - 89 mL/min/1.73m2 Mildly to moderately decreased 45 - 59 mL/min/1.73m2 Moderately to severely decreased 30 - 44 mL/min/1.73m2 Severely decreased 15 - 29 mL/min/1.73m2 Kidney Failure < 15 mL/min/1.73m2 *Relative to young adult level Estimated glomerular filtration rate is determined by the 2020 CKD-EPI equation recommended by the National Kidney Foundation (A Unifying Approach to GFR Estimation: Recommendations of the NKF-ASK Task Force on Reassessing the Inclusion of Race in Diagnosing Kidney Disease, JASN 2020). The CKD-EPI equation should not be used for patients with unstable renal function and has not been validated in children and those over 70. Current interpretive data was last reviewed 2021. Blood 11/18/2024 3:40 AM CDT 11/18/2024 5:01 AM CDT us Shaun Espinoza MD LAB BLOOD ORDERABLES F inal Result [facility] [address] Department [place] [address] * (ABNORMAL) Differential, auto (11/18/2024 3:40 AM CDT) Neutrophil abs 6.68(H) 1.50 - 6.50 K/cumm Imm gran abs 0.05 0.00 - 0.10 K/cumm [facility] Lymphocyte abs 2.97 0.80 - 3.30 K/cumm [facility] Monocyte abs 0.82(H) 0.20 - 0.80 K/cumm [facility] Eosinophil abs 0.34 0.00 - 0.50 K/cumm [facility] Basophil abs 0.03 0.00 - 0.10 K/cumm [facility] Neutrophil pct 61.3 % [facility] Comment: Interpretive Data Percent cell count reference ranges are not reported, since discordance with absolute values may lead to misinterpretation of CBC data. Current Interpretive Data was last revised on 2017. Imm gran pct 0.5 % [facility] Comment: Interpretive Data Percent cell count reference ranges are not reported, since discordance with absolute values may lead to misinterpretation of CBC data. Current Interpretive Data was last revised on 2017. Lymphocyte pct 27.3 % [facility] Comment: Interpretive Data Percent cell count reference ranges are not reported, since discordance with absolute values may lead to misinterpretation of CBC data. Current Interpretive Data was last revised on 2017. Monocyte pct 7.5 % [facility] Comment: Interpretive Data Percent cell count reference ranges are not reported, since discordance with absolute values may lead to misinterpretation of CBC data. Current Interpretive Data was last revised on 2017. Eosinophil pct 3.1 % [facility] Comment: Interpretive Data Percent cell count reference ranges are not reported, since discordance with absolute values may lead to misinterpretation of CBC data. Current Interpretive Data was last revised on 2017. Basophil pct 0.3 % [facility] Comment: Interpretive Data Percent cell count reference ranges are not reported, since discordance with absolute values may lead to misinterpretation of CBC data. Current Interpretive Data was last revised on 2017. Blood 11/18/2024 3:4 0 AM CDT 11/18/2024 5:02 AM CDT us Shaun Espinoza MD LAB BLOOD ORDERABLES F inal Result [facility] [address] Department [place] [address] * (ABNORMAL) CBC with auto differential (11/18/2024 3:40 AM CDT) WBC 10.89(H) 3.80 - 9.90 K/cumm Hgb 10.7(L) 11.9 - 15.5 g/dL [facility] Hct 32.6(L) 35.6 - 45.5 % [facility] Plt 428(H) 150 - 400 K/cumm [facility] MPV 9.4 9.1 - 12.3 fL [facility] RBC 3.65(L) 3.90 - 5.20 M/cumm [facility] MCV 89.3 81.3 - 96.4 fL [facility] MCH 29.3 27.1 - 33.3 pg [facility] MCHC 32.8 32.3 - 35.7 g/dL [facility] RDW CV 12.4 11.1 - 14.9 % [facility] RDW SD 40.8 35.7 - 48.1 fL [facility] NRBC abs 0.00 0.00 - 0.01 K/cumm [facility] Blood 11/18/2024 3:40 AM CDT 11/18/2024 5:02 AM CDT Shaun Espinoza MD LAB BLOOD ORDERABLES F inal Result [facility] [address] Department [place] [address] * Comprehensive metabolic panel (11/18/2024 3:40 AM CDT) Pathologist [facility] Sodium 138 135 - 145 mmol/L Potassium, pl 3.8 3.3 - 4.9 mmol/L [facility] Chloride 104 97 - 110 mmol/L [facility] CO2 23 22 - 32 mmol/L [facility] Anion gap 11 2 - 15 mmol/L [facility] BUN 12 6 - 25 mg/dL [facility] Creatinine 0.64 0.60 - 1.10 mg/dL [facility] Glucose 112 70 - 199 mg/dL [facility] Comment: Interpretive Data Fasting glucose >/= 126 mg/dl is diagnostic for diabetes. Fasting is defined as no caloric intake for at least 8 hours. Fasting glucose between 100 mg/dl to 125 mg/dl is diagnostic of prediabetes. In a patient with classic symptoms of hyperglycemia or hyperglycemic crisis, a random glucose >/= 200 mg/dl is diagnostic for diabetes. In the absence of unequivocal hyperglycemia, results should be confirmed by repeat testing. The classification and Diagnosis of Diabetes Diabetes Care 202; 46: S19-S40. Current interpretive data was last revised 2022. Calcium 8.8 8.5 - 10.3 mg/dL [facility] Bilirubin, total 0.5 0.1 - 1.2 mg/dL [facility] Protein, pl 6.7 6.5 - 8.5 g/dL [facility] Albumin 3.6 3.5 - 5.0 g/dL [facility] Alk phos 79 40 - 130 Units/L [facility] ALT 8 7 - 45 Units/L [facility] AST 14 10 - 45 Units/L [facility] Blood 11/18/2024 3:40 AM CDT 11/18/2024 5:01 AM CDT Shaun Espinoza MD LAB BLOOD ORDERABLES F inal Result [facility] [address] Department [place] [address] * eGFR (11/17/2024 9:21 AM CDT) eGFR >90 >=60 mL/min/1. 73 m2 Comment: Interpretive Data Reference Interval Normal >/= 90 mL/min/1.73m2 Mildly decreased* 60 - 89 mL/min/1.73m2 Mildly to moderately decreased 45 - 59 mL/min/1.73m2 Moderately to severely decreased 30 - 44 mL/min/1.73m2 Severely decreased 15 - 29 mL/min/1.73m2 Kidney Failure < 15 mL/min/1.73m2 *Relative to young adult level Estimated glomerular filtration rate is determined by the 2020 CKD-EPI equation recommended by the National Kidney Foundation (A Unifying Approach to GFR Estimation: Recommendations of the NKF-ASK Task Force on Reassessing the Inclusion of Race in Diagnosing Kidney Disease, JASN 2020). The CKD-EPI equation should not be used for patients with unstable renal function and has not been validated in children and those over 70. Current interpretive data was last reviewed 2021. Blood 11/17/2024 9:21 AM CDT 11/17/2024 9:57 AM CDT us Isiahmina Prasad GIBSON LAB BLOOD ORDERABLES Final R esult [facility] [address] [place] [address] * Differential, auto (11/17/2024 9:21 AM CDT) Neutrophil abs 5.96 1.50 - 6.50 K/cumm Imm gran abs 0.04 0.00 - 0.10 K/cumm [facility] Lymphocyte abs 2.24 0.80 - 3.30 K/cumm [facility] Monocyte abs 0.66 0.20 - 0.80 K/cumm [facility] Eosinophil abs 0.18 0.00 - 0.50 K/cumm [facility] Basophil abs 0.02 0.00 - 0.10 K/cumm [facility] Neutrophil pct 65.5 % [facility] Comment: Interpretive Data Percent cell count reference ranges are not reported, since discordance with absolute values may lead to misinterpretation of CBC data. Current Interpretive Data was last revised on 2017. Imm gran pct 0.4 % [facility] Comment: Interpretive Data Percent cell count reference ranges are not reported, since discordance with absolute values may lead to misinterpretation of CBC data. Current Interpretive Data was last revised on 2017. Lymphocyte pct 24.6 % [facility] Comment: Interpretive Data Percent cell count reference ranges are not reported, since discordance with absolute values may lead to misinterpretation of CBC data. Current Interpretive Data was last revised on 2017. Monocyte pct 7.3 % [facility] Comment: Interpretive Data Percent cell count reference ranges are not reported, since discordance with absolute values may lead to misinterpretation of CBC data. Current Interpretive Data was last revised on 2017. Eosinophil pct 2.0 % [facility] Comment: Interpretive Data Percent cell count reference ranges are not reported, since discordance with absolute values may lead to misinterpretation of CBC data. Current Interpretive Data was last revised on 2017. Basophil pct 0.2 % [facility] Comment: Interpretive Data Percent cell count reference ranges are not reported, since discordance with absolute values may lead to misinterpretation of CBC data. Current Interpretive Data was last revised on 2017. Blood 11/17/2024 9:21 AM CDT 11/17/2024 9:57 AM CDT Jv Parham NP LAB BLOOD ORDERABLES Final R esult [facility] [address] [place] [address] * (ABNORMAL) CBC with auto differential (11/17/2024 9:21 AM CDT) WBC 9.10 3.80 - 9.90 K/cumm Hgb 10.9(L) 11.9 - 15.5 g/dL [facility] Hct 33.3(L) 35.6 - 45.5 % [facility] Plt 424(H) 150 - 400 K/cumm [facility] MPV 9.2 9.1 - 12.3 fL [facility] RBC 3.78(L) 3.90 - 5.20 M/cumm [facility] MCV 88.1 81.3 - 96.4 fL [facility] MCH 28.8 27.1 - 33.3 pg [facility] MCHC 32.7 32.3 - 35.7 g/dL [facility] RDW CV 12.3 11.1 - 14.9 % [facility] RDW SD 39.8 35.7 - 48.1 fL [facility] NRBC abs 0.00 0.00 - 0.01 K/cumm [facility] Blood 11/17/2024 9:21 AM CDT 11/17/2024 9:57 AM CDT Jv Parham NP LAB BLOOD ORDERABLES Final R esult [facility] [address] [place] [address] * (ABNORMAL) Comprehensive metabolic panel (11/17/2024 9:21 AM CDT) Sodium 139 135 - 145 mmol/L Potassium, pl 4.3 3.3 - 4.9 mmol/L [facility] Chloride 105 97 - 110 mmol/L [facility] CO2 23 22 - 32 mmol/L [facility] Anion gap 11 2 - 15 mmol/L [facility] BUN 7 6 - 25 mg/dL [facility] Creatinine 0.51(L) 0.60 - 1.10 mg/dL [facility] Glucose 108 70 - 199 mg/dL [facility] Comment: Interpretive Data Fasting glucose >/= 126 mg/dl is diagnostic for diabetes. Fasting is defined as no caloric intake for at least 8 hours. Fasting glucose between 100 mg/dl to 125 mg/dl is diagnostic of prediabetes. In a patient with classic symptoms of hyperglycemia or hyperglycemic crisis, a random glucose >/= 200 mg/dl is diagnostic for diabetes. In the absence of unequivocal hyperglycemia, results should be confirmed by repeat testing. The classification and Diagnosis of Diabetes Diabetes Care 2021; 46: S19-S40. Current interpretive data was last revised 2022. Calcium 8.8 8.5 - 10.3 mg/dL [facility] Bilirubin, total 0.4 0.1 - 1.2 mg/dL [facility] Protein, pl 7.1 6.5 - 8.5 g/dL [facility] Albumin 3.7 3.5 - 5.0 g/dL [facility] Alk phos 93 40 - 130 Units/L [facility] ALT 13 7 - 45 Units/L [facility] AST 35 10 - 45 Units/L [facility] Blood 11/17/2024 9:21 AM CDT 11/17/2024 9:57 AM CDT us Jv Parham NP LAB BLOOD ORDERABLES Final R esult [facility] [address] [place] [address] * Critical Care (11/17/2024 3:02 AM CDT) Narrative Michi Modi PA - 11/17/2024 3:02 AM CDT Michi Modi PA 11/17/2024 3:02 AM Critical Care Performed by: Michi Modi PA Authorized by: Cecilio Sherwood MD Critical care provider statement: As reflected in the history, physical exam, orders, notes, and/or MDM, I was personally present while the patient was critically ill and provided critical care services for 32 minutes, excluding time involved in separately billable procedures. Critical care was necessary to treat or prevent imminent or life-threatening deterioration of the following condition(s): acute cholecystitis/cholangitis Critical care was time spent by me providing the following: interpretation of bedside monitors, imaging, and arterial/venous lab draws and serial bedside patient exams decision regarding NPO status empiric broad coverage antibiotics acute pain control I provided emergent necessary critical care medicine services to this patient. I ordered and reviewed test results and/or imaging studies. I spent time discussing the management of this critically ill patient with consultants and the medical staff. I spent time discussing the management and therapeutic options for this critically ill patient with the patient themselves or with the appropriate designated surrogate decision-maker. I spent time documenting in the medical record. Cecilio Sherwood MD IN CLINIC/BEDSIDE ORDERABLES Final Result * POCT hCG, urine (11/17/2024 2:36 AM CDT) HCG, ur, POC Negative Negative Lot Number [id number] QC Backgroud Clear Acceptable QC Control Line Acceptable Urine 11/17/2024 2:36 AM CDT Cecilio Sherwood MD POINT OF CARE TEST ORDERABLE S Final Result * ECG 12 lead (11/17/2024 1:07 AM CDT) 11/17/2024 1:07 AM CDT Narrative [facility] - 11/18/2024 6:50 AM CDT Vent Rate: 70 bpm RR Interval: 847 msec [place] Interval: 161 msec QRS Duration: 93 msec QT Interval: 387 msec QTC Interval: 408 msec P-R-T [place]: 23 - 6 - 6 degrees IMPRESSION: SINUS RHYTHM LOW QRS VOLTAGE IN PRECORDIAL LEADS [QRS DEFLECTION < 1.0 mV IN CHEST LEADS] POSSIBLE ANTERIOR MYOCARDIAL INFARCTION , OF INDETERMINATE AGE [30 ms Q WAVE IN V3/V4, OR R < 0.2 mV IN V4] ABNORMAL ECG NO CHANGE FROM PREVIOUS TRACING NOTED Electronically Signed By: Bryce Burrell MD Cecilio Sherwood MD ECG ORDERABLES Final Result Performing Organization Address City/[facility] Co de Phone Number [facility] * Troponin T high-sensitivity series (baseline, 2hr, 4hr, 6hr) (11/17/2024 12:56 AM CDT) Pathologist [facility] Trop T hs <6 <=14 ng/L [facility] ([place]) Comment: Interpretive Data For further hscTnT resources including the diagnostic algorithm and an aid in interpretation, copy and paste this link: [email or web address].[email or web address] Current Interpretive Data last revised 2020. Blood 11/17/2024 12:5 6 AM CDT 11/17/2024 1:17 AM CDT Cecilio Sherwood MD LAB BLOOD ORDERABLES Final R esult Performing Organization Address City/[facility] Co de Phone Number [facility] ([place]) 1 [facility] [place] [address] * eGFR (11/17/2024 12:56 AM CDT) eGFR >90 >=60 mL/min/1. 73 m2 Comment: Interpretive Data Reference Interval Normal >/= 90 mL/min/1.73m2 Mildly decreased* 60 - 89 mL/min/1.73m2 Mildly to moderately decreased 45 - 59 mL/min/1.73m2 Moderately to severely decreased 30 - 44 mL/min/1.73m2 Severely decreased 15 - 29 mL/min/1.73m2 Kidney Failure < 15 mL/min/1.73m2 *Relative to young adult level Estimated glomerular filtration rate is determined by the 2020 CKD-EPI equation recommended by the National Kidney Foundation (A Unifying Approach to GFR Estimation: Recommendations of the NKF-ASK Task Force on Reassessing the Inclusion of Race in Diagnosing Kidney Disease, JASN 2020). The CKD-EPI equation should not be used for patients with unstable renal function and has not been validated in children and those over 70. Current interpretive data was last reviewed 2021. Blood 11/17/2024 12:5 6 AM CDT 11/17/2024 1:17 AM CDT us Cecilio Sherwood MD LAB BLOOD ORDERABLES Final R esult [facility] ([place]) 1 [facility] [place] [address] * (ABNORMAL) Differential, auto (11/17/2024 12:56 AM CDT) Neutrophil abs 6.99(H) 1.50 - 6.50 K/cumm Imm gran abs 0.04 0.00 - 0.10 K/cumm [facility] ([place]) Lymphocyte abs 3.10 0.80 - 3.30 K/cumm [facility] ([place]) Monocyte abs 0.84(H) 0.20 - 0.80 K/cumm [facility] ([place]) Eosinophil abs 0.31 0.00 - 0.50 K/cumm [facility] ([place]) Basophil abs 0.03 0.00 - 0.10 K/cumm [facility] ([place]) Neutrophil pct 61.8 % [facility] ([place]) Comment: Interpretive Data Percent cell count reference ranges are not reported, since discordance with absolute values may lead to misinterpretation of CBC data. Current Interpretive Data was last revised on 2017. Imm gran pct 0.4 % [facility] ([place]) Comment: Interpretive Data Percent cell count reference ranges are not reported, since discordance with absolute values may lead to misinterpretation of CBC data. Current Interpretive Data was last revised on 2017. Lymphocyte pct 27.4 % [facility] ([place]) Comment: Interpretive Data Percent cell count reference ranges are not reported, since discordance with absolute values may lead to misinterpretation of CBC data. Current Interpretive Data was last revised on 2017. Monocyte pct 7.4 % [facility] ([place]) Comment: Interpretive Data Percent cell count reference ranges are not reported, since discordance with absolute values may lead to misinterpretation of CBC data. Current Interpretive Data was last revised on 2017. Eosinophil pct 2.7 % [facility] ([place]) Comment: Interpretive Data Percent cell count reference ranges are not reported, since discordance with absolute values may lead to misinterpretation of CBC data. Current Interpretive Data was last revised on 2017. Basophil pct 0.3 % [facility] ([place]) Comment: Interpretive Data Percent cell count reference ranges are not reported, since discordance with absolute values may lead to misinterpretation of CBC data. Current Interpretive Data was last revised on 2017. Blood 11/17/2024 12:5 6 AM CDT 11/17/2024 1:17 AM CDT us Cecilio Sherwood MD LAB BLOOD ORDERABLES Final R esult [facility] ([place]) 1 [facility] [place] [address] * (ABNORMAL) CBC with auto differential (11/17/2024 12:56 AM CDT) WBC 11.31(H) 3.80 - 9.90 K/cumm Hgb 11.7(L) 11.9 - 15.5 g/dL [facility] ([place]) Hct 34.5(L) 35.6 - 45.5 % [facility] ([place]) Plt 477(H) 150 - 400 K/cumm [facility] ([place]) MPV 9.2 9.1 - 12.3 fL [facility] ([place]) RBC 4.01 3.90 - 5.20 M/cumm [facility] ([place]) MCV 86.0 81.3 - 96.4 fL [facility] ([place]) MCH 29.2 27.1 - 33.3 pg [facility] ([place]) MCHC 33.9 32.3 - 35.7 g/dL [facility] ([place]) RDW CV 12.3 11.1 - 14.9 % [facility] ([place]) RDW SD 38.7 35.7 - 48.1 fL [facility] ([place]) NRBC abs 0.00 0.00 - 0.01 K/cumm [facility] ([place]) Blood Venous blood specimen / Unknown 11/17/2024 12:56 AM CDT 11/17/2024 1:17 AM CDT Cecilio Sherwood MD LAB BLOOD ORDERABLES Final R esult [facility] ([place]) 1 [facility] [address] [place] [address] * Lipase (11/17/2024 12:56 AM CDT) Pathologist [facility] Lipase 27 10 - 99 Units/L [facility] ([place]) Blood Venous blood specimen / Unknown 11/17/2024 12:56 AM CDT 11/17/2024 1:17 AM CDT Cecilio Sherwood MD LAB BLOOD ORDERABLES Final R esult [facility]) 1 [facility] [place] [address] * (ABNORMAL) Comprehensive metabolic panel (11/17/2024 12:56 AM CDT) Sodium 140 135 - 145 mmol/L [facility] ([place]) Potassium, pl 3.9 3.3 - 4.9 mmol/L [facility] ([place]) Chloride 103 97 - 110 mmol/L [facility] CO2 23 22 - 32 mmol/L [facility]) Anion gap 14 2 - 15 mmol/L [facility] ([place]) BUN 9 6 - 25 mg/dL [facility] ([place]) Creatinine 0.54(L) 0.60 - 1.10 mg/dL [facility] ([place]) Glucose 127 70 - 199 mg/dL [facility] ([place]) Comment: Interpretive Data Fasting glucose >/= 126 mg/dl is diagnostic for diabetes. Fasting is defined as no caloric intake for at least 8 hours. Fasting glucose between 100 mg/dl to 125 mg/dl is diagnostic of prediabetes. In a patient with classic symptoms of hyperglycemia or hyperglycemic crisis, a random glucose >/= 200 mg/dl is diagnostic for diabetes. In the absence of unequivocal hyperglycemia, results should be confirmed by repeat testing. The classification and Diagnosis of Diabetes Diabetes Care 2021; 46: S19-S40. Current interpretive data was last revised 2022. Calcium 9.6 8.5 - 10.3 mg/dL [facility] ([place]) Bilirubin, total 0.3 0.1 - 1.2 mg/dL [facility] ([place]) Protein, pl 7.7 6.5 - 8.5 g/dL [facility] ([place]) Albumin 4.2 3.5 - 5.0 g/dL [facility]) Alk phos 73 40 - 130 Units/L [facility]) ALT 7 7 - 45 Units/L [facility]) AST 14 10 - 45 Units/L [facility]) Blood 11/17/2024 12:5 6 AM CDT 11/17/2024 1:17 AM CDT Cecilio Sherwood MD LAB BLOOD ORDERABLES Final R esult [facility] ([place]) 1 [facility] Department of Laboratories [place], [place] [id number] * US Pelvis W Endovaginal (10/21/2024 9:36 AM CDT) Anatomical Region Laterality Modality Pelvis N/A Ultrasound 10/21/2024 9:40 AM CDT Narrative 10/21/2024 9:45 AM CDT EXAM DESCRIPTION: US PELVIS W ENDOVAGINAL REASON FOR STUDY: Pelvic pain, left ovarian cyst, worsening pain today, to assess for ruptured cyst. TECHNIQUE: Grayscale ultrasound of the pelvic contents was performed with transabdominal and transvaginal transducer. COMPARISON: CT abdomen and pelvis 10/14/2024. FINDINGS: UTERUS: The uterus is anteverted. The uterus is homogenous in echotexture and measures 9.6 x 6.3 x 5.1 cm. ENDOMETRIUM: The endometrium measures 0.5 cm in thickness. RIGHT OVARY: The right ovary measures 1.6 x 3.4 x 4.0 cm. There is documentation of color Doppler flow in the right ovary. The right ovary appears unremarkable. LEFT OVARY: The left ovary measures 3.9 x 4.9 x 5.1 cm. There is documentation of color Doppler flow in the left ovary. Dominant left ovarian cystic structure 3.9 x 3.8 x 4.1 cm. PELVIC FLUID: There is no evidence of free fluid in the pelvis. OTHER: No other significant findings. IMPRESSION: 1. No evidence of an acute abnormality. 2. No free fluid in the pelvis shown. 3. Dominant left ovarian cystic structure 4.1 cm most likely functional cysts, no specific follow-up needed. Preserved color Doppler flow and waveforms of the ovaries. THIS IS AN ELECTRONICALLY VERIFIED FINAL REPORT 10/21/2024 9:45 AM - Electronically signed by Dimitry Chowdhury M.D. CH: NICO Report ID: [id number] Reading Location: [place] [address] Procedure Note Dimitry Chowdhury Jr., MD - 10/21/2024 EXAM DESCRIPTION: US PELVIS W ENDOVAGINAL REASON FOR STUDY: Pelvic pain, left ovarian cyst, worsening pain today, to assess for ruptured cyst. TECHNIQUE: Grayscale ultrasound of the pelvic contents was performed with transabdominal and transvaginal transducer. COMPARISON: CT abdomen and pelvis 10/14/2024. FINDINGS: UTERUS: The uterus is anteverted. The uterus is homogenous inechotexture and measures 9.6 x 6.3 x 5.1 cm. ENDOMETRIUM: The endometrium measures 0.5 cm in thickness. RIGHT OVARY: The right ovary measures 1.6 x 3.4 x 4.0 cm. There is documentation of color Doppler flow in the right ovary. The right ovary appears unremarkable. LEFT OVARY: The left ovary measures 3.9 x 4.9 x 5.1 cm. There is documentation of color Doppler flow in the left ovary. Dominant leftovarian cystic structure 3.9 x 3.8 x 4.1 cm. PELVIC FLUID: There is no evidence of free fluid in the pelvis. OTHER: No other significant findings. IMPRESSION: 1. No evidence of an acute abnormality. 2. No free fluid in the pelvis shown. 3. Dominant left ovarian cystic structure 4.1 cm most likely functional cysts, no specific follow-up needed. Preserved color Doppler flow and waveforms of the ovaries. THIS IS AN ELECTRONICALLY VERIFIED FINAL REPORT 10/21/2024 9:45 AM - Electronically signed by Dimitry Chowdhury M.D. CH: Report ID: [id number] Reading Location: [place] [address] us Yao Verma MD IM US PROCEDURES F inal Result * eGFR (10/21/2024 7:10 AM CDT) eGFR >90 >=60 mL/min/1. 73 m2 Comment: Interpretive Data Reference Interval Normal >/= 90 mL/min/1.73m2 Mildly decreased* 60 - 89 mL/min/1.73m2 Mildly to moderately decreased 45 - 59 mL/min/1.73m2 Moderately to severely decreased 30 - 44 mL/min/1.73m2 Severely decreased 15 - 29 mL/min/1.73m2 Kidney Failure < 15 mL/min/1.73m2 *Relative to young adult level Estimated glomerular filtration rate is determined by the 2020 CKD-EPI equation recommended by the [employer] Kid[employer] (A Unifying Approach to GFR Estimation: Recommendations of the NKF-ASK Task Force on Reassessing the Inclusion of Race in Diagnosing Kidney Disease, JASN 2020). The CKD-EPI equation should not be used for patients with unstable renal function and has not been validated in children and those over 70. Current interpretive data was last reviewed 2021. Blood 10/21/2024 7:10 AM CDT 10/21/2024 7:12 AM CDT us Yao Verma MD LAB BLOOD ORDERABLE S Final Result [facility] ([place]) 1 [facility] [place] [address] * (ABNORMAL) Differential, auto (10/21/2024 7:10 AM CDT) Neutrophil abs 6.00 1.50 - 6.50 K/cumm Imm gran abs 0.05 0.00 - 0.10 K/cumm [facility] ([place]) Lymphocyte abs 2.49 0.80 - 3.30 K/cumm [facility] ([place]) Monocyte abs 0.81(H) 0.20 - 0.80 K/cumm [facility] ([place]) Eosinophil abs 0.34 0.00 - 0.50 K/cumm [facility] ([place]) Basophil abs 0.03 0.00 - 0.10 K/cumm [facility] ([place]) Neutrophil pct 61.8 % [facility] ([place]) Comment: Interpretive Data Percent cell count reference ranges are not reported, since discordance with absolute values may lead to misinterpretation of CBC data. Current Interpretive Data was last revised on 2017. Imm gran pct 0.5 % [facility] ([place]) Comment: Interpretive Data Percent cell count reference ranges are not reported, since discordance with absolute values may lead to misinterpretation of CBC data. Current Interpretive Data was last revised on 2017. Lymphocyte pct 25.6 % [facility] ([place]) Comment: Interpretive Data Percent cell count reference ranges are not reported, since discordance with absolute values may lead to misinterpretation of CBC data. Current Interpretive Data was last revised on 2017. Monocyte pct 8.3 % [facility] ([place]) Comment: Interpretive Data Percent cell count reference ranges are not reported, since discordance with absolute values may lead to misinterpretation of CBC data. Current Interpretive Data was last revised on 2017. Eosinophil pct 3.5 % [facility] ([place]) Comment: Interpretive Data Percent cell count reference ranges are not reported, since discordance with absolute values may lead to misinterpretation of CBC data. Current Interpretive Data was last revised on 2017. Basophil pct 0.3 % [facility] ([place]) Comment: Interpretive Data Percent cell count reference ranges are not reported, since discordance with absolute values may lead to misinterpretation of CBC data. Current Interpretive Data was last revised on 2017. Blood 10/21/2024 7:10 AM CDT 10/21/2024 7:11 AM CDT us Yao Verma MD LAB BLOOD ORDERABLE S Final Result [facility] ([place]) 1 [facility] [place] [address] * (ABNORMAL) CBC with auto differential (10/21/2024 7:10 AM CDT) WBC 9.72 3.80 - 9.90 K/cumm Hgb 11.2(L) 11.9 - 15.5 g/dL [facility] ([place]) Hct 32.9(L) 35.6 - 45.5 % [facility] ([place]) Plt 363 150 - 400 K/cumm [facility] ([place]) MPV 9.1 9.1 - 12.3 fL [facility] ([place]) RBC 3.77(L) 3.90 - 5.20 M/cumm [facility] ([place]) MCV 87.3 81.3 - 96.4 fL [facility] ([place]) MCH 29.7 27.1 - 33.3 pg [facility] ([place]) MCHC 34.0 32.3 - 35.7 g/dL [facility] ([place]) RDW CV 12.6 11.1 - 14.9 % [facility]) RDW SD 39.8 35.7 - 48.1 fL [facility] ([place]) NRBC abs 0.00 0.00 - 0.01 K/cumm [facility] ([place]) Blood 10/21/2024 7:10 AM CDT 10/21/2024 7:11 AM CDT Yao Verma MD LAB BLOOD ORDERABLE S Final Result [facility] ([place]) 1 [facility] [place] [address] * hCG, blood, quantitative (10/21/2024 7:10 AM CDT) hCG, quant <5.0 0.0 - 5.0 IUnits/L Comment: Interpretive Data Male: < 5 IU/L Non- premenopausal Female: <5 IU/L The Mike hCG Beta Quant assay procedure was used. Results from different manufacturers or methods may not be comparable. Serial testing should be performed using the same method. Interpretive Data was last revised on 2023 Blood 10/21/2024 7:10 AM CDT 10/21/2024 8:04 AM CDT us Yao Verma MD LAB BLOOD ORDERABLE S Edited Result - Final [facility] ([place]) 1 [facility] [place] [address] * (ABNORMAL) Basic metabolic panel (10/21/2024 7:10 AM CDT) Sodium 138 135 - 145 mmol/L Potassium, pl 4.1 3.3 - 4.9 mmol/L [facility] ([place]) Chloride 102 97 - 110 mmol/L [facility] CO2 22 22 - 32 mmol/L [facility]) Anion gap 14 2 - 15 mmol/L [facility] ([place]) BUN 12 6 - 25 mg/dL [facility] ([place]) Creatinine 0.43(L) 0.60 - 1.10 mg/dL [facility] ([place]) Glucose 117 70 - 199 mg/dL [facility] ([place]) Comment: Interpretive Data Fasting glucose >/= 126 mg/dl is diagnostic for diabetes. Fasting is defined as no caloric intake for at least 8 hours. Fasting glucose between 100 mg/dl to 125 mg/dl is diagnostic of prediabetes. In a patient with classic symptoms of hyperglycemia or hyperglycemic crisis, a random glucose >/= 200 mg/dl is diagnostic for diabetes. In the absence of unequivocal hyperglycemia, results should be confirmed by repeat testing. The classification and Diagnosis of Diabetes Diabetes Care 2021; 46: S19-S40. Current interpretive data was last revised 2022. Calcium 9.2 8.5 - 10.3 mg/dL [facility] ([place]) Blood 10/21/2024 7:10 AM CDT 10/21/2024 7:12 AM CDT us Yao Verma MD LAB BLOOD ORDERABLE S Final Result [facility] ([place]) 1 [facility] [place] [address] * XR Spine Lumbar 2 or 3 Views (10/14/2024 5:42 PM CDT) Anatomical Region Laterality Modality Spine N/A Computed Radiogr aphy 10/14/2024 7:47 PM CDT Narrative 10/14/2024 7:47 PM CDT EXAM DESCRIPTION: XR SPINE LUMBAR 2 OR 3 VIEWS REASON FOR STUDY: back pain, mid lumbar, Pt states she has bilateral flank pain. No injury. Hx of kidney stones TECHNIQUE: 3 radiographic view(s) of the lumbar spine. COMPARISON: Radiographs of the lumbar spine dated 11/07/2019. FINDINGS: ALIGNMENT: Anatomic. VERTEBRAE: Vertebral bodies of normal height. No acute fracture. DISCS: Disc height well-maintained. SOFT TISSUES: Within normal limits. IMPRESSION: No acute spinal abnormality. THIS IS AN ELECTRONICALLY VERIFIED FINAL REPORT 10/14/2024 7:47 PM - Electronically signed by Aleksey Ulloa M.D. MF: ANA PAULA Report ID: [id number] Reading Location: [id number] Procedure Note Aleksey Ulloaory, DO - 10/14/2024 EXAM DESCRIPTION: XR SPINE LUMBAR 2 OR 3 VIEWS REASON FOR STUDY: back pain, mid lumbar, Pt states she has bilateral flank pain. No injury. Hx of kidney stones TECHNIQUE: 3 radiographic view(s) of the lumbar spine. COMPARISON: Radiographs of the lumbar spine dated 11/07/2019. FINDINGS: ALIGNMENT: Anatomic. VERTEBRAE: Vertebral bodies of normal height. No acute fracture. DISCS: Disc height well-maintained. SOFT TISSUES: Within normal limits. IMPRESSION: No acute spinal abnormality. THIS IS AN ELECTRONICALLY VERIFIED FINAL REPORT 10/14/2024 7:47 PM - Electronically signed by Aleksey Ulloa M.D. MF: ANA PAULA Report ID: [id number] Reading Location: [place] [address] Michi Lepe MD IMG XR PROCEDURES Final Res ult * CT KUB Stone WO Contrast (10/14/2024 4:30 PM CDT) Anatomical Region Laterality Modality Abdomen N/A Computed Tomogra phy 10/14/2024 5:34 PM CDT Narrative 10/14/2024 5:39 PM CDT EXAM DESCRIPTION: CT KUB STONE WO CONTRAST REASON FOR STUDY: Bilateral flank pain with hx of stones and kidney reflux Bilateral sided flank pain x 1 week, nausea and vomiting x 4 days. Hx of kidney stones and kidney reflux disease. TECHNIQUE: CT scan of the abdomen and pelvis performed without intravenous and without oral contrast using helical scanning technique. Reconstructed coronal and sagittal MPR images reviewed. All images stored on PACS. Automated exposure control was used as a dose optimization technique for this examination. COMPARISON: 10/12/2023 FINDINGS: The sensitivity for detection of visceral lesions is diminished without the use of intravenous contrast. LOWER CHEST: No significant pulmonary abnormalities. No effusion. LIVER: Decreased attenuation as seen with fibrofatty changes GALLBLADDER: No stones identified. No wall thickening or inflammatory changes. BILE DUCTS: No intrahepatic or extrahepatic ductal dilatation. SPLEEN: Normal size. No focal lesions. PANCREAS: No identified cystic or solid masses. No significant calcifications. No adjacent inflammation or peripancreatic fluid collections. Pancreatic duct not dilated. ADRENALS: Normal. KIDNEYS/URINARY TRACT: No identified significant cystic or solid masses. No stones. No hydronephrosis or hydroureter. Urinary bladder is unremarkable. GI: No dilated bowel loops. No obvious wall thickening. Appendix is not visualized. No significant diverticular disease. PERITONEUM: No ascites or free air. RETROPERITONEUM: No mass or adenopathy. REPRODUCTIVE: 5.6 cm x 3.3 cm cystic lesion on the left ovary. This finding would be better evaluated with pelvic ultrasound if clinically indicated. VASCULATURE: No abdominal aortic aneurysm. MUSCULOSKELETAL: No significant abnormality. OTHER: No other abnormality. IMPRESSION: 1. No obstructing renal or ureteral calculus. 2. 5.6 cm x 3.3 cm cystic lesion on the left ovary. This finding would be better evaluated with pelvic ultrasound. 3. Fatty infiltration of the liver. THIS IS AN ELECTRONICALLY VERIFIED FINAL REPORT 10/14/2024 5:39 PM - Electronically signed by Lester Mondragon M.D. KT: EFRAÍN Report ID: [id number] Reading Location: [id number] Procedure Note Lester Mondragon MD - 10/14/2024 EXAM DESCRIPTION: CT KUB STONE WO CONTRAST REASON FOR STUDY: Bilateral flank pain with hx of stones and kidneyreflux Bilateral sided flank pain x 1 week, nausea and vomiting x 4 days. Hx of kidney stones and kidney reflux disease. TECHNIQUE: CT scan of the abdomen and pelvis performed without intravenousand without oral contrast using helical scanning technique. Reconstructed coronal and sagittal MPR images reviewed. All images stored on PACS.Automated exposure control was used as a dose optimization technique for this examination. COMPARISON: 10/12/2023 FINDINGS: The sensitivity for detection of visceral lesions is diminished withoutthe use of intravenous contrast. LOWER CHEST: No significant pulmonary abnormalities. No effusion. LIVER: Decreased attenuation as seen with fibrofatty changes GALLBLADDER: No stones identified. No wall thickening or inflammatory changes. BILE DUCTS: No intrahepatic or extrahepatic ductal dilatation. SPLEEN: Normal size. No focal lesions. PANCREAS: No identified cystic or solid masses. No significant calcifications. No adjacent inflammation or peripancreatic fluidcollections. Pancreatic duct not dilated. ADRENALS: Normal. KIDNEYS/URINARY TRACT: No identified significant cystic or solid masses.No stones. No hydronephrosis or hydroureter. Urinary bladder isunremarkable. GI: No dilated bowel loops. No obvious wall thickening. Appendix is not visualized. No significant diverticular disease. PERITONEUM: No ascites or free air. RETROPERITONEUM: No mass or adenopathy. REPRODUCTIVE: 5.6 cm x 3.3 cm cystic lesion on the left ovary. Thisfinding would be better evaluated with pelvic ultrasound if clinically indicated. VASCULATURE: No abdominal aortic aneurysm. MUSCULOSKELETAL: No significant abnormality. OTHER: No other abnormality. IMPRESSION: 1. No obstructing renal or ureteral calculus. 2. 5.6 cm x 3.3 cm cystic lesion on the left ovary. This finding wouldbe better evaluated with pelvic ultrasound. 3. Fatty infiltration of the liver. THIS IS AN ELECTRONICALLY VERIFIED FINAL REPORT 10/14/2024 5:39 PM - Electronically signed by Lester Mondragon M.D. KT: EFRAÍN Report ID: [id number] Reading Location: [place] [address] Fred Allred NP IMG CT PROCEDURES Final Res ult * POCT hCG, urine (10/14/2024 2:54 PM CDT) HCG, ur, POC Negative Negative Lot Number [id number] QC Backgroud Clear Acceptable QC Control Line Acceptable Urine 10/14/2024 2:54 PM CDT Michi Lepe MD POINT OF CARE TEST ORDERABL ES Final Result * (ABNORMAL) Urinalysis reflex to microscopic and culture Urine (10/14/2024 2:53 PM CDT) Color, ur Yellow Yellow Clarity, ur Turbid(A) Clear [facility] ([place]) Specific gravity, ur 1.022 1.003 - 1.030 [facility] ([place]) pH, urine 5.5 [facility] ([place]) Comment: Interpretive Data U rine pH is affected by diet, medications, systemic acid-base disturbances, and renal tubular function. pH may affect urinary stone formation. For example, urine pH below 6.0 may help reduce the tendency for calcium phosphate stones and pH greater than 6.0 may reduce the tendency for uric acid stone formation. Source: [facility] Current Interpretive Data was last revised on 2017 Protein, ur ql Negative Negative [facility]) Glucose, ur ql Negative Negative [facility]) Ketones, ur 1+(A) Negative [facility] ([place]) Bilirubin, ur Negative Negative [facility] ([place]) Blood, ur Negative Negative [facility]) Urobilinogen, ur <2.0 <2.0 mg/dL [facility] ([place]) Nitrite, ur Negative Negative [facility]) Leukocyte esterase, ur Negative Negative [facility] ([place]) UA reflex comment Reflex conditions for microscopic UA and culture not met. [facility] ([place]) Urine 10/14/2024 2:53 PM CDT 10/14/2024 3:01 PM CDT us Michi Lepe MD LAB MICROBIOLOGY - GENERAL ORDERABLES Final Result [facility] ([place]) 1 [facility] [place] [address] * eGFR (10/14/2024 2:39 PM CDT) eGFR >90 >=60 mL/min/1. 73 m2 Comment: Interpretive Data Reference Interval Normal >/= 90 mL/min/1.73m2 Mildly decreased* 60 - 89 mL/min/1.73m2 Mildly to moderately decreased 45 - 59 mL/min/1.73m2 Moderately to severely decreased 30 - 44 mL/min/1.73m2 Severely decreased 15 - 29 mL/min/1.73m2 Kidney Failure < 15 mL/min/1.73m2 *Relative to young adult level Estimated glomerular filtration rate is determined by the 2020 CKD-EPI equation recommended by the National Kidney [employer] (A Unifying Approach to GFR Estimation: Recommendations of the NKF-ASK Task Force on Reassessing the Inclusion of Race in Diagnosing Kidney Disease, JASN 2020). The CKD-EPI equation should not be used for patients with unstable renal function and has not been validated in children and those over 70. Current interpretive data was last reviewed 2021. Blood 10/14/2024 2:39 PM CDT 10/14/2024 2:41 PM CDT Michi Lepe MD LAB BLOOD ORDERABLES Final Result [facility] ([place]) 1 [facility] [place] [address] * (ABNORMAL) Differential, auto (10/14/2024 2:39 PM CDT) Neutrophil abs 9.07(H) 1.50 - 6.50 K/cumm Imm gran abs 0.11(H) 0.00 - 0.10 K/cumm [facility] ([place]) Lymphocyte abs 3.35(H) 0.80 - 3.30 K/cumm [facility] ([place]) Monocyte abs 0.69 0.20 - 0.80 K/cumm [facility] ([place]) Eosinophil abs 0.34 0.00 - 0.50 K/cumm [facility] ([place]) Basophil abs 0.04 0.00 - 0.10 K/cumm [facility] ([place]) Neutrophil pct 66.7 % [facility] ([place]) Comment: Interpretive Data Percent cell count reference ranges are not reported, since discordance with absolute values may lead to misinterpretation of CBC data. Current Interpretive Data was last revised on 2017. Imm gran pct 0.8 % [facility] ([place]) Comment: Interpretive Data Percent cell count reference ranges are not reported, since discordance with absolute values may lead to misinterpretation of CBC data. Current Interpretive Data was last revised on 2017. Lymphocyte pct 24.6 % [facility] ([place]) Comment: Interpretive Data Percent cell count reference ranges are not reported, since discordance with absolute values may lead to misinterpretation of CBC data. Current Interpretive Data was last revised on 2017. Monocyte pct 5.1 % [facility] ([place]) Comment: Interpretive Data Percent cell count reference ranges are not reported, since discordance with absolute values may lead to misinterpretation of CBC data. Current Interpretive Data was last revised on 2017. Eosinophil pct 2.5 % [facility] ([place]) Comment: Interpretive Data Percent cell count reference ranges are not reported, since discordance with absolute values may lead to misinterpretation of CBC data. Current Interpretive Data was last revised on 2017. Basophil pct 0.3 % [facility] ([place]) Comment: Interpretive Data Percent cell count reference ranges are not reported, since discordance with absolute values may lead to misinterpretation of CBC data. Current Interpretive Data was last revised on 2017. Blood 10/14/2024 2:39 PM CDT 10/14/2024 2:41 PM CDT Michi Lepe MD LAB BLOOD ORDERABLES Final Result [facility] ([place]) 1 [facility] Department of Laboratories [place] [id number] * (ABNORMAL) CBC with auto differential (10/14/2024 2:39 PM CDT) WBC 13.60(H) 3.80 - 9.90 K/cumm Hgb 11.8(L) 11.9 - 15.5 g/dL [facility] ([place]) Hct 34.4(L) 35.6 - 45.5 % [facility] ([place]) Plt 469(H) 150 - 400 K/cumm [facility] ([place]) MPV 8.7(L) 9.1 - 12.3 fL [facility] ([place]) RBC 3.98 3.90 - 5.20 M/cumm [facility] ([place]) MCV 86.4 81.3 - 96.4 fL [facility] ([place]) MCH 29.6 27.1 - 33.3 pg [facility]) MCHC 34.3 32.3 - 35.7 g/dL [facility] ([place]) RDW CV 12.6 11.1 - 14.9 % [facility] ([place]) RDW SD 39.9 35.7 - 48.1 fL [facility] ([place]) NRBC abs 0.00 0.00 - 0.01 K/cumm [facility] ([place]) Blood Venous blood specimen / Unknown 10/14/2024 2:39 PM CDT 10/14/2024 2:41 PM CDT Michi Lepe MD LAB BLOOD ORDERABLES Final Result [facility] ([place]) 1 [facility] [place] [address] * Lipase (10/14/2024 2:39 PM CDT) Pathologist [facility] Lipase 27 10 - 99 Units/L Blood Venous blood specimen / Unknown 10/14/2024 2:39 PM CDT 10/14/2024 2:41 PM CDT Michi Lepe MD LAB BLOOD ORDERABLES Final Result Performing Organization Address City/[facility]/ZIP Co de Phone Number [facility] ([place]) 1 [facility] [place] [address] * (ABNORMAL) Comprehensive metabolic panel (10/14/2024 2:39 PM CDT) Pathologist [facility] Sodium 137 135 - 145 mmol/L Potassium, pl 3.9 3.3 - 4.9 mmol/L [facility] ([place]) Chloride 102 97 - 110 mmol/L [facility]) CO2 22 22 - 32 mmol/L [facility] ([place]) Anion gap 14 2 - 15 mmol/L [facility] ([place]) BUN 10 6 - 25 mg/dL [facility] ([place]) Creatinine 0.45(L) 0.60 - 1.10 mg/dL [facility] ([place]) Glucose 99 70 - 199 mg/dL [facility] ([place]) Comment: Interpretive Data Fasting glucose >/= 126 mg/dl is diagnostic for diabetes. Fasting is defined as no caloric intake for at least 8 hours. Fasting glucose between 100 mg/dl to 125 mg/dl is diagnostic of prediabetes. In a patient with classic symptoms of hyperglycemia or hyperglycemic crisis, a random glucose >/= 200 mg/dl is diagnostic for diabetes. In the absence of unequivocal hyperglycemia, results should be confirmed by repeat testing. The classification and Diagnosis of Diabetes Diabetes Care 2021; 46: S19-S40. Current interpretive data was last revised 2022. Calcium 9.5 8.5 - 10.3 mg/dL [facility] ([place]) Bilirubin, total 0.4 0.1 - 1.2 mg/dL [facility] ([place]) Protein, pl 7.4 6.5 - 8.5 g/dL [facility] ([place]) Albumin 3.9 3.5 - 5.0 g/dL [facility] ([place]) Alk phos 89 40 - 130 Units/L [facility] ([place]) ALT 9 7 - 45 Units/L [facility]) AST 14 10 - 45 Units/L [facility] ([place]) Blood Venous blood specimen / Unknown 10/14/2024 2:39 PM CDT 10/14/2024 2:41 PM CDT Michi Lepe MD LAB BLOOD ORDERABLES Final Result [facility] ([place]) 1 [facility] [place] [address] from Last 3 Months Insurance [facility] Advance Directives For more information, please contact: [phone] * Full Code (Latest Code Status on File) Date Activated Date Inactivated Comments 11/17/2024 6:03 AM 11/20/2024 4:32 PM * Full Code Date Activated Date Inactivated Comments 11/24/2023 11:57 AM 11/24/2023 6:47 PM * Full Code Date Activated Date Inactivated Comments 11/24/2023 11:57 AM 11/24/2023 11:57 AM * Full Code Date Activated Date Inactivated Comments 11/16/2022 8:07 AM 11/16/2022 3:29 PM * Full Code Date Activated Date Inactivated Comments 11/16/2022 8:07 AM 11/16/2022 8:07 AM Care Teams Quality Coordinator Relationship Specialty Start Date End Date Mikey Snyder MD PCP - General 08/18/20 [place] [id number] [address] Surgeon Colon and Rectal Surgery 11/20/24
--- OUTSIDE RECORDS SUMMARY | 2025-01-03 09:46 | XMS_ITS | Clinical Summary ---
Author Organization [facility] Address [address] [place] [address] Phone Care Team Providers Care Instructor Kindergarten Name Role Phone Mikey Snyder MD Primary Care Provider [phone] Allergies Active Allergy Reactions Criticality Noted Date Comments Aspirin Shortness of Breath 11/14/2015 Silva Nausea 07/16/2017 Codeine Vomiting 02/06/2017 Ketorolac Tromethamine Vomiting 09/27/2017 Tramadol Hives 11/14/2015 Medications metFORMIN (GLUCOPHAGE) 1000 MG Tablet Take 2,000 mg by mouth daily. Active SUMAtriptan (IMITREX) 25 MG Tablet Take 1 Tab by mouth once as needed for Migraine for up to 1 dose. Use as directed. May repeat dose in 2 hours if headache recurs. 9 Tab 9 Active meloxicam (MOBIC) 15 MG Tablet Take 1 Tab by mouth daily. 10 Tab 9 Active predniSONE (DELTASONE) 50 MG Tablet Take 1 Tablet by mouth daily. Take your 1st dose on Monday07/31/2020 9 Tablet 1 Active ondansetron (ZOFRAN) 4 MG Tablet Take 1-2 Tablets by mouth every 8 hours as needed for Nausea - 1st line. 10 Tablet 2 Active albuterol 108 (90 Base) MCG/ACT Aerosol Solution take 2 Puffs by inhalation every 6 hours as needed for Wheezing or Cough. 8.5 g 3 Active methylPREDNISol one (MEDROL DOSPACK) 4 MG Tablet Therapy Pack See product package insert for dosing schedule 21 Tablet 3 Active ketorolac (TORADOL) 10 MG Tablet Take 1 Tablet by mouth every 6 hours as needed for Moderate or more severe pain. 20 Tablet 4 Active ondansetron (ZOFRAN) 4 MG Tablet Take 1 Tablet by mouth every 8 hours as needed for Nausea - 1st line. 10 Tablet 4 Active ondansetron (ZOFRAN-ODT) 4 MG TABLET DISPERSIBLEIndi cations:Nausea and Vomiting Take 1 Tablet by mouth every 8 hours as needed for Nausea - 1st line. Indications: Nausea and Vomiting 10 Tablet 4 Active Encounters Date Type Department Care Team Description 11/15/2024 6:49 PM CDT - 11/15/2024 11:17 PM CDT Emergency [facility] Emergency [address] [place] [address] Ebenezer Mcgee MD Right upper quadrant abdominal pain Discharge Disposition: Discharged to home or Selfcare 11/15/2024 Travel from Last 3 Months Immunizations Immunization Administration Dates Next Due Td Vaccine (preservative free) 07/09/2024 Family History Medical History Relation Name Comments Hypertension Father Kidney Cancer Father Stroke Father Colon Cancer Maternal Grandfather Stroke Maternal Grandfather Breast Cancer Maternal Grandmother Breast Cancer Mother Seizures Mother Stroke Paternal Grandfather Relation Name Status Comments Father Maternal Grandfather Maternal Grandmother Mother Paternal Grandfather Social History Tobacco Use Types Packs/Day Years Used Date Smoking Tobacco: Never Smokeless Tobacco: Never Tobacco Cessation:Counseling Given: Not Answered Alcohol Use Standard Drinks/Week Comments No 0 (1 standard drink = 0.6 oz pur e alcohol) Comments No Sex and Gender Information Value Date Recorded Sex Assigned at Female 07/09/2024 7:26 PM CDT Legal Sex Female 11:07 PM CDT Gender Identity Female 07/09/2024 7:26 PM CDT Sexual Orientation Not on file Last Filed Vital Signs Vital Sign Reading Time Taken Comments Blood Pressure 135/90 11/15/2024 6:56 PM CDT Pulse 74 11/15/2024 6:56 PM CDT Temperature 37.4 C (99.3 F) 11/15/2024 6:56 PM CDT Respiratory Rate 17 11/15/2024 6:56 PM CDT Oxygen Saturation 99% 11/15/2024 6:56 PM CDT Inhaled Oxygen Concentration - - Weight 122.9 kg (271 lb) 11/15/2024 6:56 PM CDT Height 162.6 cm (5' 4) 11/15/2024 6:56 PM CDT Body Mass Index 46.52 11/15/2024 6:56 PM CDT Plan of Treatment Health Maintenance Due Date Last Done Comments Hepatitis C Virus (HCV) Screening 1993 Pap Smear 2014 Cervical Cancer Screening (CCS) 10/18/2023 HPV/Cotest 10/18/2023 Influenza Immunization (#1) 2024 12/0 12/2023, 04/23/2021, 04/29/2020, Additional history exists SARS-COV-2 Immunization ( season) 2024 07/08/2021, 04/23/2021, 05/24/2020 Respiratory Syncytial Virus (RSV) Immunization (Adult) (1 - 1-dose 75+ series) 2068 Hepatitis B Immunization Completed 995, 1993, 1993 Human Papillomavirus (HPV) Immunization Completed 01/11/2010, 08/17/2009, 06/16/2009 Meningococcal Immunization (ACWY) Completed 10/11/2010 Pneumococcal Immunization Combined Aged Out 09/01/2014 No longer eligible based on patient's age to complete this topic TdaP Immunization Completed 05/10/2017, 06/16/2009 DTaP/Tdap/Td Immunization Discontinued 2024, 05/10/2017, 06/16/2009, Additional history exists Rotavirus Immunization Aged Out No lo nger eligible based on patient's age to complete this topic Procedures Procedure Name Priority Date/Time Associated Diagnosis Comments CT ABDOMEN PELVIS W/ CONTRAST Stat with Interpretation 11/15/2024 9:24 PM CDT URINALYSIS REFLEX IF INDICATED BY ABNORMAL RESULTS STAT 11/15/2024 7:45 PM CDT CULTURE, URINE STAT 11/15/2024 7:45 PM CDT CBC WITH AUTO DIFFERENTIAL STAT 11/15/2024 7:03 PM CDT LIPASE STAT 11/15/2024 7:03 PM CDT COMPLETE BLOOD COUNT (CBC) WITH DIFF STAT 11/15/2024 7:03 PM CDT CMP (COMPREHENSIVE METABOLIC PANEL) STAT 11/15/2024 7:03 PM CDT from Last 3 Months Results * CT ABDOMEN PELVIS W/ CONTRAST (11/15/2024 9:24 PM CDT) Anatomical Region Laterality Modality Abdomen N/A Computed Tomogra phy 11/15/2024 10:0 7 PM CDT Impressions 11/15/2024 10:10 PM CDT IMPRESSION: 1. Partly decompressed gallbladder with slight pericholecystic fat stranding. Clinical correlation is recommended. If acute cholecystitis is clinically suspected, dedicated ultrasound could be considered for further evaluation. 2. Colonic diverticulosis. Narrative 11/15/2024 10:10 PM CDT EXAM DESCRIPTION: CT ABDOMEN PELVIS W/ CONTRAST REASON FOR STUDY: Abdominal pain x 1 month with N/V. Hx of HTN TECHNIQUE: CT scan of the abdomen and pelvis performed with intravenous and without oral contrast using helical scanning technique with dynamic intravenous contrast injection. Reconstructed coronal and sagittal MPR images reviewed. All images stored on PACS. Automated exposure control was used as a dose optimization technique for this examination. CONTRAST TYPE/DOSE: 100mL of IOPAMIDOL 76 % IV SOLN injected COMPARISON: 08/23/2022 FINDINGS: LOWER CHEST: Mild scattered subsegmental atelectasis. No pleural effusion. Imaged portions of the heart and esophagus are within normal limits. LIVER: Normal size. No identified cystic or solid masses. Portal veins are patent. GALLBLADDER: The gallbladder is partly decompressed with slight pericholecystic fat stranding. Subtle foci of hyperattenuation within the gallbladder lumen can be seen with gallbladder sludge or cholelithiasis. BILE DUCTS: No intrahepatic or extrahepatic ductal dilatation. SPLEEN: Mild splenomegaly measuring 13.6 cm in craniocaudal dimension. No focal lesions. PANCREAS: No identified cystic or solid masses. No significant calcifications. No adjacent inflammation or peripancreatic fluid collections. Pancreatic duct not dilated. ADRENALS: Normal. KIDNEYS/URINARY TRACT: No identified significant cystic or solid masses. No visualized stones. No hydronephrosis or hydroureter. Symmetric enhancement. Urinary bladder is unremarkable. GI: The stomach is normal. The small bowel and colon are normal in course and caliber with no evidence of obstruction or inflammation. No CT evidence of acute appendicitis. Scattered colonic diverticulosis PERITONEUM: No ascites or free air. No lymphadenopathy. RETROPERITONEUM: No mass or adenopathy. REPRODUCTIVE: The uterus is unremarkable. Left ovarian dominant follicle/cyst measures 30 mm. Bilateral ovarian follicles are present. VASCULATURE: No abdominal aortic aneurysm. The abdominal aorta and its branches are patent. MUSCULOSKELETAL: No acute fractures or aggressive osseous lesions. THIS IS AN ELECTRONICALLY VERIFIED FINAL REPORT 11/15/2024 10:07 PM - Electronically signed by Gael Carrasco M.D. AT: AT Report ID: [id number] Reading Location: [id number] Procedure Note Gael Carrasco MD - 11/15/2024 EXAM DESCRIPTION: CT ABDOMEN PELVIS W/ CONTRAST REASON FOR STUDY: Abdominal pain x 1 month with N/V. Hx of HTN TECHNIQUE: CT scan of the abdomen and pelvis performed with intravenous and without oral contrast using helical scanning technique with dynamic intravenous contrast injection. Reconstructed coronal and sagittal MPR images reviewed. All images stored on PACS. Automated exposure control was used as a dose optimization technique for this examination. CONTRAST TYPE/DOSE: 100mL of IOPAMIDOL 76 % IV SOLN injected COMPARISON: 08/23/2022 FINDINGS: LOWER CHEST: Mild scattered subsegmental atelectasis. No pleural effusion. Imaged portions of the heart and esophagus are within normal limits. LIVER: Normal size. No identified cystic or solid masses. Portal veins are patent. GALLBLADDER: The gallbladder is partly decompressed with slight pericholecystic fat stranding. Subtle foci of hyperattenuation within the gallbladder lumen can be seen with gallbladder sludge or cholelithiasis. BILE DUCTS: No intrahepatic or extrahepatic ductal dilatation. SPLEEN: Mild splenomegaly measuring 13.6 cm in craniocaudal dimension. No focal lesions. PANCREAS: No identified cystic or solid masses. No significant calcifications. No adjacent inflammation or peripancreatic fluid collections. Pancreatic duct not dilated. ADRENALS: Normal. KIDNEYS/URINARY TRACT: No identified significant cystic or solid masses. No visualized stones. No hydronephrosis or hydroureter. Symmetric enhancement. Urinary bladder is unremarkable. GI: The stomach is normal. The small bowel and colon are normal in course and caliber with no evidence of obstruction or inflammation. No CT evidence of acute appendicitis. Scattered colonic diverticulosis PERITONEUM: No ascites or free air. No lymphadenopathy. RETROPERITONEUM: No mass or adenopathy. REPRODUCTIVE: The uterus is unremarkable. Left ovarian dominant follicle/cyst measures 30 mm. Bilateral ovarian follicles are present. VASCULATURE: No abdominal aortic aneurysm. The abdominal aorta and its branches are patent. MUSCULOSKELETAL: No acute fractures or aggressive osseous lesions. THIS IS AN ELECTRONICALLY VERIFIED FINAL REPORT 11/15/2024 10:07 PM - Electronically signed by Gael Carrasco M.D. AT: AT Report ID: [id number] Reading Location: [id number] IMPRESSION: 1. Partly decompressed gallbladder with slight pericholecystic fat stranding. Clinical correlation is recommended. If acute cholecystitis is clinically suspected, dedicated ultrasound could be considered for further evaluation. 2. Colonic diverticulosis. Ebenezer Mcgee MD IMG CT ORDERABLES Final R esult * (ABNORMAL) URINALYSIS REFLEX IF INDICATED BY ABNORMAL RESULTS (11/15/2024 7:45 PM CDT) SPECIFIC GRAVITY 1.025 1.003 - 1.030 11/15/2024 8:51 PM CDT [facility] URINE PH 6.0 5.0 - 9.0 11/15/2024 8:51 PM CDT [facility] WBC ESTERASE 25 /ul(A) Negative 11/15/2024 8:51 PM CDT [facility] NITRITE Negative Negative 11/15/2024 8:51 PM CDT [facility] PROTEIN, RANDOM URINE 30 mg/dL(A) Negative 11/15/2024 8:51 PM CDT [facility] URINE GLUCOSE, QUAL Negative Negative 11/15/2024 8:51 PM CDT [facility] URINE KETONES Negative Negative 11/15/2024 8:51 PM CDT [facility] UROBILINOGEN Normal Normal mg/dL 11/15/2024 8:51 PM CDT [facility] URINE BLOOD Negative Negative luz elena/ul 11/15/2024 8:51 PM CDT [facility] URINALYSIS COLOR Yellow 11/16/19 8:51 PM CDT [facility] URINALYSIS CLARITY Slightly Cloudy 11/15/2024 8:51 PM CDT [facility] WBC (Urine) 6-10(A) Negative, 0-5 /hpf 11/15/2024 8:51 PM CDT [facility] URINE RBC'S 3-5(A) Negative, 0-2 /hpf 11/15/2024 8:51 PM CDT [facility] EPITHELIAL CELLS Large amount squamous /lpf 11/15/2024 8:51 PM CDT [facility] BACTERIA, URINE Moderate(A) Negative /hpf 11/15/2024 8:51 PM CDT [facility] URINE MUCOUS Few 11/15/2024 8:51 PM CDT [facility] Urine URINE SPECIMEN OBTAINED BY CLEAN CATCH PROCEDURE / Unknown Non-Phlebotomy Collection / Unknown 11/15/2024 7:45 PM CDT 11/15/2024 8:10 PM CDT us Ebenezer Mcgee MD URINE ORDERABLES Final Re sult [facility] [address] [place] [address] * Culture, Urine (11/15/2024 7:45 PM CDT) CULTURE RESULTS Mixed Growth or 3 or More Organisms, Probable Collection Contamination, Suggest Repeat 11/17/2024 10:44 AM CDT [facility] Urine URINE SPECIMEN OBTAINED BY CLEAN CATCH PROCEDURE / Unknown Non-Phlebotomy Collection / Unknown 11/15/2024 7:45 PM CDT 11/15/2024 8:10 PM CDT us Ebenezer Mcgee MD MICROBIOLOGY - GENERAL OR DERABLES Final Result [facility] [address] [place] [address], * (ABNORMAL) CBC with Auto Differential (11/15/2024 7:03 PM CDT) WBC 11.86 4.00 - 12.00 10(3)/mcL 11/15/2024 7:39 PM CDT [facility] RBC 4.03 3.80 - 5.30 10(6)/mcL 11/15/2024 7:39 PM CDT [facility] HEMOGLOBIN (HGB) 11.8(L) 12.0 - 15.8 g/dL 11/15/2024 7:39 PM CDT [facility] HEMATOCRIT (HCT) 34.7(L) 36.0 - 47.0 % 11/15/2024 7:39 PM CDT [facility] MCV 86.1 82.0 - 96.0 fL 11/15/2024 7:39 PM CDT [facility] MCH 29.3 26.0 - 34.0 pg 11/15/2024 7:39 PM CDT [facility] MCHC 34.0 31.0 - 36.0 g/dL 11/15/2024 7:39 PM CDT [facility] PLATELET COUNT 532(H) 140 - 440 10(3)/mcL 11/15/2024 7:39 PM CDT [facility] RDW 12.4 11.8 - 15.5 % 11/15/2024 7:39 PM CDT [facility] MPV 9.3(L) 9.7 - 12.4 fL 11/15/2024 7:39 PM CDT [facility] NEUTROPHILS 63.7 47.0 - 73.0 % 11/15/2024 7:39 PM CDT [facility] LYMPHOCYTES 25.9 18.0 - 42.0 % 11/15/2024 7:39 PM CDT [facility] MONOCYTES 6.2 4.0 - 12.0 % 11/15/2024 7:39 PM CDT [facility] EOSINOPHILS 3.4 0.0 - 5.0 % 11/15/2024 7:39 PM CDT [facility] BASOPHILS 0.3 0.0 - 1.0 % 11/15/2024 7:39 PM CDT [facility] IMMATURE GRANULOCYTE 0.5(H) 0.0 - 0.4 % 11/15/2024 7:39 PM CDT [facility] Comment:Immature Granulocyte s includes Metamyelocytes, Myelocytes, and Promyelocytes. ABSOLUTE NEUTROPHILS 7.56 1.60 - 7.70 10(3)/mcL 11/15/2024 7:39 PM CDT [facility] ABSOLUTE LYMPHOCYTES 3.07 1.30 - 3.20 10(3)/[facility] 11/15/2024 7:39 PM CDT [facility] ABSOLUTE MONOCYTES 0.74 0.20 - 1.00 10(3)/[facility] 11/15/2024 7:39 PM CDT [facility] ABSOLUTE EOSINOPHIL 0.40 0.00 - 0.40 10(3)/[facility] 11/15/2024 7:39 PM CDT [facility] ABSOLUTE BASOPHILS 0.03 0.00 - 0.10 10(3)/[facility] 11/15/2024 7:39 PM CDT [facility] ABSOLUTE IMMATURE GRANULOCYTE 0.06(H) 0.00 - 0.03 10 (3) mcL. 11/15/2024 7:39 PM CDT [facility] NRBC PER 100 WBC 0 11/16/19 7:39 PM CDT [facility] Blood Venipuncture / Unknown 11/15/2024 7:03 PM CDT 11/15/2024 7:35 PM CDT Ebenezer Mcgee MD HEMATOLOGY ORDERABLES Fin al Result Performing Organization Address City/[facility]/ZIP Co de Phone Number [facility] [address] [place] [address] * Lipase (11/15/2024 7:03 PM CDT) Pathologist [facility] LIPASE 25 8 - 78 U/L 11/15/2024 7:56 PM CDT [facility] Blood Venipuncture / Unknown 11/15/2024 7:03 PM CDT 11/15/2024 7:35 PM CDT Ebenezer Mcgee MD CHEMISTRY ORDERABLES Kayleigh l Result Performing Organization Address City/[facility]/ZIP Co de Phone Number [facility] [address] [place] [address] * (ABNORMAL) CMP (Comprehensive Metabolic Panel) (11/15/2024 7:03 PM CDT) [facility] SODIUM 142 136 - 145 mmol/L 11/15/2024 7:56 PM CDT [facility] POTASSIUM 4.2 3.5 - 5.1 mmol/L 11/15/2024 7:56 PM CDT [facility] CHLORIDE 105 98 - 107 mmol/L 11/15/2024 7:56 PM CDT [facility] CO2, VENOUS 27 22 - 30 mmol/L 11/15/2024 7:56 PM CDT [facility] ANION GAP 14.2 <18.0 mmol/L 11/15/2024 7:56 PM CDT [facility] GLUCOSE 94 70 - 99 mg/dL 11/15/2024 7:56 PM CDT [facility] BUN 14 5 - 18 mg/dL 11/15/2024 7:56 PM CDT [facility] CREATININE, BLOOD 0.61 0.60 - 1.00 mg/dL 11/15/2024 7:56 PM T [facility] BUN/CREATININE RATIO 23(H) 12 - 20 ratio 11/15/2024 7:56 PM [facility] TOTAL PROTEIN 8.1(H) 6.0 - 8.0 g/dL 11/15/2024 7:56 PM CDT [facility] ALBUMIN 4.4 3.5 - 5.0 g/dL 11/15/2024 7:56 PM [facility] A/G RATIO 1.2 1.0 - 2.2 11/15/2024 7:56 PM [facility] CALCIUM 9.8 8.7 - 10.5 mg/dL 11/15/2024 7:56 PM T [facility] T BILI 0.4 0.2 - 1.2 mg/dL 11/15/2024 7:56 PM T [facility] SGOT (AST) 13 <43 U/L 11/15/2024 7:56 PM [facility] SGPT (ALT) 6 <56 U/L 11/15/2024 7:56 PM [facility] ALKALINE PHOSPHATASE 72 40 - 150 U/L 11/15/2024 7:56 PM [facility] GFR, ESTIMATED >60 >=60 11/15/2024 7:56 PM [facility] Comment: Creatinine Clearance is the preferred criteria for selecting drug dose adjustments in renally impaired patients. The GFR is provided as additional pertinent clinical information. GFR is reported in mL/min/1.73 sq m. Calculation based on the Chronic Kidney Disease Epidemiology Collaboration (CKD- EPI) equation refit without adjustment for race. GFR, EST. >60 >=60 025 7:56 PM T [facility] GFR, EST. NONAFRICAN >60 >=60 11/15/2024 7:56 PM CDT [facility] Blood Venipuncture / Unknown 11/15/2024 7:03 PM CDT 11/15/2024 7:35 PM CDT us Ebenezer Mcgee MD CHEMISTRY ORDERABLES Kayleigh hathaway Result [facility] [address] [facility] [place] [address] from Last 3 Months Insurance MEDICAID [employer] [facility] GENERIC Advance Directives * Full Code (Latest Code Status on File) Date Activated Date Inactivated Comments 07/16/2017 7:18 PM 07/16/2017 10:40 PM CPR-Full Tr eatment: FULL ARREST: Attempt Resuscitation/CPR wit intubation and mechanical ventilation. PRE-ARREST: Use entire range of life support measures to stabilize the patient. Care Teams Instructor Kindergarten Relationship Specialty Start Date End Date Mikey Snyder MD [address] [facility] [address] [facility] [place] [address] PCP - General Family Medicine 09/09/20
== END 2025-01-03 10:01 | disposition home or self-care (01) ==
PROVIDERS: Emergency Provider Nurse Practitioner Family; PCP Family Medicine
DX: R19.7 Diarrhea, unspecified (principal); R11.2 Nausea with vomiting, unspecified; S31.105A Unspecified open wound of abdominal wall, periumbilic region without penetration into peritoneal cavity, initial encounter; X58.XXXA Exposure to other specified factors, initial encounter
CPT/HCPCS: 87070; 87075; 87186; 87205; 99213; G0463